=== PATIENT | male | born 1955 | race Caucasian/White ===

== ENCOUNTER → 2016-09-04 | Day surgery (SDC) | payer OTHER ==
[2016-08-30 07:45] VITALS: Ht 185.4 cm; Wt 90.9 kg
[~2016-09-04] VITALS: Ht 185.4 cm; Wt 90.9 kg
[~2016-09-04] MED LIST: 500ML BSSPLUS 0.5ML EPI1:1000 IRRIG ONE; ACETAMINOPHEN 325 MG TAB PO PRN; ATROPINE SULFATE 0.1 MG/ML 5ML SYR IV PRN; ATROPINE SULFATE 1% OP OINT PER APPLICATION CHARGE ONE; AcetylCHOLine CHL OP SOL 1:100 2 ML BTL ONE; B-CO1CAP3 PO; BSS FLUSH ONE; BUPIVACAINE HCL 0.75% 10 ML AMP/VIAL ONE; CEFAZOLIN SOD 1 GM VIAL ONE; CITA40TA4 PO; DEXAMETHASONE SOD INJ 4 MG/ML VIAL ONE; EpHEDrine SULFATE INJ 50 MG/ML AMP IV PRN; EpINEphrine INJ 1MG/ML AMP 1 MG/ML AMP ONE; FENTANYL CITRATE INJ 50 MCG/1 ML 2 ML VIAL ONE; HYALURONIDASE HUMAN 150 UNIT/ML INJ ONE; LACTATED RINGER'S 1000ML 500 ML IV SCH; LIDOCAINE HCL 2% 2 ML VIAL (20MG/ML) ONE; LIDOCAINE MPF 4% INJ INJ ONE; MIDAZOLAM HCL 1 MG/ML 2ML VIAL ONE; NEOMYCIN/POLYMYX/DEXAMETH OP OINT PER APP CHARGE ONE; OCUCOAT 1 ML SOLN IO ONE; ONDANSETRON INJ 2 MG/ML 2 ML VIAL ONE; PROPARACAINE 0.5% OP SOLN PER DROP CHARGE OPL SCH; PROPOFOL IV EMULSION 10 MG/ML 20 ML VIAL IV ONE; TIMOLOL MALEATE 0.5% OP SOLN PER DROP CHARGE ONE; TRIAMCINOLONE ACETONIDE OPHTH 40 MG/ML VIAL STERILE IO ONE
[2016-09-04] MEDS: PHENYLEPHRINE HCL 2.5% OP SOLN PER DROP CHARGE OPL SCH ×2 (07:11→07:16)
[2016-09-04] MEDS: TROPICAMIDE 1% OP SOLN PER DROP CHARGE OPL SCH ×2 (07:12→07:17)
--- NOTE | 2016-09-04 08:14 | History & Physical Bridge - [place] ---
H&P Re-Evaluation Bridge Note: Pt has dislocated lens in left eye and is here for removal of dislocated lens and placement of new anterior chamber lens left eye. I have examined the patient , reviewed the History & Physical and in the interval since the performance of the History & Physical I have noted the following changes of clinical significance: No changes noted
--- NOTE | 2016-09-04 10:38 | Discharge Instructions-SurgCtr ---
Discharge Instructions Date of Service Sep 04, 2016. Visit Reason for Visit: Left Eye Subluxed Lens Discharge Discharge Diagnosis / Problem: same Discharge Goals Goal(s): Improve function Activity Recommendations Activity Limitations: per Instructions/Follow-up section Anesthesia . Post Anesthesia Instructions: If you have had General Anesthesia or IV Sedation: * Do not drive today. * Resume driving when surgeon permits. * Do not make important decisions or sign legal documents today. * Call surgeon for: 1. Temperature elevations greater than 101 degrees F. 2. Uncontrollable pain. 3. Excessive bleeding. 4. Persistent nausea and vomiting. 5. Medication intolerance (nausea, vomiting or rash). * For nausea and vomiting use only clear liquids such as: tea, soda, bouillon until nausea subsides, then gradually increase diet as tolerated. * If you have any concerns or questions, call your surgeon's office. If physician is unavailable and it is an emergency, call 911 or go to the nearest emergency room. . Instructions / Follow-Up Instructions / Follow-Up * May take Tylenol if needed for discomfort. * Do NOT remove eye shield. * NO straining, heavy lifting (>15 pounds) or bending below waist. * Avoid getting water or soap directly into operative eye. * Do NOT rub eye. If you experience increasing eye pain not relieved by medication, please contact us immediately at [phone]. If you are unable to reach someone at the above number, call [phone] and ask to speak with the EYE DOCTOR RESEARCH LIBRARIAN. Inform them that you are a Dr. Figueredo patient who had recent surgery. Diet Recommendations Home Diet: resume previous diet Procedures Procedures Performed: Left Eye Vitrectomy 23 Gauge, Lens Removal and Implant Placement Left Eye Pending Studies Studies pending at discharge: no Medical Emergencies . Who to Call and When: Medical Emergencies: If at any time you feel your situation is an emergency, please call 911 immediately. . Non-Emergent Contact Non-Emergency issues call your: [employer] Machine Operator . . "Provider Documentation" section prepared by Carson Figueredo.
--- NOTE | 2016-09-04 10:45 | [facility] Operative Report ---
Operative Report Date of Service Sep 04, 2016. Operative Report PREOPERATIVE DIAGNOSIS: Posterior dislocated intraocular lens implant, left eye. ICD10 CODE: T85.22XD POSTOPERATIVE DIAGNOSIS: same. PROCEDURE: 1. Pars plana vitrectomy, 23 gauge. 2. Removal of dislocated lens implant. 3. Placement of anterior chamber lens. 4. Posterior subTenon's injection of Triescence 20mg. All to the left eye. CPT CODE: [id number] SURGEON: Carson Figueredo D.O. COMPLICATIONS: None. ESTIMATED BLOOD LOSS: None. SPECIMENS: None. ANESTHESIA: Retrobulbar block and MAC INDICATIONS FOR PROCEDURE: Surgery is indicated to decrease risk of vision loss and potentially improve vision. CONSENT: The risks, benefits and alternatives were discussed with the patient including but not limited to decreased visual acuity, failure to achieve desired results, loss of the eye, infection, pain, glaucoma, lens changes, retinal tears, retinal detachment, the need for more procedures, drooping of the eyelid, blindness, and double vision. The patient is aware of risks and consents to the surgery. Consent is signed and on the chart. OPERATION AND FINDINGS: The patient was brought to the operating room where the patient was identified by name, date, and medical record number. The surgical site was confirmed with the informed written consent. The patient was sedated by the anesthesiology team after which a 50:50 mixture of 4% lidocaine and 0.75% bupivacaine with hyaluronidase was administered in a standard retrobulbar fashion. A total of 4 ml was administered without difficulty. The patient was then prepped and draped in the usual sterile manner for retinal surgery. A wire lid speculum was placed and an Tyler 23-gauge trocar cannula system was employed. The inferior temporal trocar cannula was first placed in an angled fashion 3.75mm posterior to the surgical limbus and the infusion cannula was inserted into this cannula after which the intravitreal position was verified prior to turning the infusion on. Two more trocar cannulas were then inserted in an angled fashion, one in the superior temporal, and one in the superior nasal quadrant both 3.75mm posterior to the surgical limbus. A light pipe and vitrector were then introduced into the eye and the BIOM wide angle viewing system was brought into place. Posterior inspection revealed a posterior dislocated lens implant. There was also peripheral laser from previously repaired retinal detachment. Standard core vitrectomy was performed and the capsular remnants were removed from the implant with the vitrector and the implant was brought into the anterior chamber. Next, a limited limbal based conjunctival peritomy was fashioned and the white to white distance was measured and found to be 12.5mm. A limbal based corneal incision measuring 7mm was made with a keratome, [place] was instilled and the previously subluxed old lens implant was removed through this incision with foreign body forceps. Next, the new S122UV +13.5D lens was implanted and rotated into place without difficulty. The incision was closed with interrupted 10-0 nylon suture and the knots were buried. The wound was found to be without leaks. Next, a peripheral iridotomy was fashioned at the 1 o'clock meridian with the vitrector. The instruments were then removed and the sclerotomies were closed with 8-0 Vicryl suture and found to be water tight. The limited conjunctival peritomy was also closed with 7-0 Vicryl suture. The intraocular pressure was found to be within normal limits by palpation and subconjunctival injections of vancomycin and dexamethasone were administered inferiorly and superiorly. A subTenon's injection of Triescence 20mg was injected inferiorly. The wire lid speculum was removed. Maxitrol was applied to the surface of the eye. A light patch and shield were taped over the surface of the eye and the patient left the Operating Room in stable condition having tolerated the procedure well. I attest to the content of the Intraoperative Record and any orders documented therein. Any exceptions are noted below.
--- NOTE | 2016-09-04 11:07 | Anesthesia Progress Nt - [facility] ---
Anesthesia Post Op Note Date & Time Sep 04, 2016 at 11:06 Vital Signs Pain Intensity: 0 Vital Signs Past 12 Hours Date Time Temp Pulse Resp B/P Pulse Ox O2 Delivery O2 Flow Rate FiO2 09/04/16 10:41 36.7 71 16 139/81 95 Room Air 09/04/16 07:15 36.4 72 18 139/88 97 Room Air Notes Mental Status: alert / awake / arousable, participated in evaluation Pt Amnestic to Procedure: Yes Nausea / Vomiting: adequately controlled Pain: adequately controlled Airway Patency, RR, SpO2: stable & adequate BP & HR: stable & adequate Hydration State: stable & adequate Anesthetic Complications: no major complications apparent
[2016-09-04 11:11] VITALS: BP 137/82; PULSE 68; TEMP 36.7; O2SAT 96
== END | disposition home or self-care (01) ==
LOC: X.SURG 06:29
PROVIDERS: ATTEND Ophthalmology
DX: T85.22XA Displacement of intraocular lens, initial encounter (principal); Y83.1 Surgical operation with implant of artificial internal device as the cause of abnormal reaction of the patient, or of later complication, without mention of misadventure at the time of the procedure; F17.200 Nicotine dependence, unspecified, uncomplicated; Z98.49 Cataract extraction status, unspecified eye

== ENCOUNTER → 2016-11-01 | Outpatient (CLI) | payer OTHER ==
[~2016-11-01] MED LIST changes: -500ML BSSPLUS 0.5ML EPI1:1000 IRRIG ONE; -ACETAMINOPHEN 325 MG TAB PO PRN; -ATROPINE SULFATE 0.1 MG/ML 5ML SYR IV PRN; -ATROPINE SULFATE 1% OP OINT PER APPLICATION CHARGE ONE; -AcetylCHOLine CHL OP SOL 1:100 2 ML BTL ONE; -BSS FLUSH ONE; -BUPIVACAINE HCL 0.75% 10 ML AMP/VIAL ONE; -CEFAZOLIN SOD 1 GM VIAL ONE; -DEXAMETHASONE SOD INJ 4 MG/ML VIAL ONE; -EpHEDrine SULFATE INJ 50 MG/ML AMP IV PRN; -EpINEphrine INJ 1MG/ML AMP 1 MG/ML AMP ONE; -FENTANYL CITRATE INJ 50 MCG/1 ML 2 ML VIAL ONE; -HYALURONIDASE HUMAN 150 UNIT/ML INJ ONE; -LACTATED RINGER'S 1000ML 500 ML IV SCH; -LIDOCAINE HCL 2% 2 ML VIAL (20MG/ML) ONE; -LIDOCAINE MPF 4% INJ INJ ONE; -MIDAZOLAM HCL 1 MG/ML 2ML VIAL ONE; -NEOMYCIN/POLYMYX/DEXAMETH OP OINT PER APP CHARGE ONE; -OCUCOAT 1 ML SOLN IO ONE; -ONDANSETRON INJ 2 MG/ML 2 ML VIAL ONE; -PROPARACAINE 0.5% OP SOLN PER DROP CHARGE OPL SCH; -PROPOFOL IV EMULSION 10 MG/ML 20 ML VIAL IV ONE; -TIMOLOL MALEATE 0.5% OP SOLN PER DROP CHARGE ONE; -TRIAMCINOLONE ACETONIDE OPHTH 40 MG/ML VIAL STERILE IO ONE
--- NOTE | 2016-11-01 14:06 | DIAGNOSTIC IMAGING REPORT ---
TESTICULAR ULTRASOUND HISTORY: Pain N43.3 Hydrocele COMPARISON: None. FINDINGS: Right testis: Maximum dimension 4.4 cm. Normal vascular flow. Small right hydrocele. Left testis: Maximum dimension 4.8 cm. Normal vascular flow. Small hydrocele. IMPRESSION: 1. Normal testicular ultrasound. 2. Small bilateral hydroceles. Electronically signed by: Kanu Chu M.D. 11/01/2016 2:04 PM Dictated Date/Time: 11/01/2016 2:03 PM
--- NOTE | 2016-11-01 14:07 | DIAGNOSTIC IMAGING REPORT ---
ULTRASOUND ART DOP LOWER EXT BILAT CLINICAL HISTORY: HYDROCELE, CLOTIFICATION LE COMPARISON STUDY: None FINDINGS: Real-time as well as Doppler evaluation of the arterial structures of the lower legs was performed. Waveforms are triphasic throughout. Velocity characteristics are unremarkable. The following blood pressure indices were obtained. On the right, posterior tibial is 1.23 and dorsalis pedis is 0.94. On the left, posterior tibial is 1.32 and dorsalis pedis is 0.95. IMPRESSION: Normal study. No significant stenosis Electronically signed by: Kanu Chu M.D. 11/01/2016 2:06 PM Dictated Date/Time: 11/01/2016 2:05 PM
== END | disposition home or self-care (01) ==
LOC: C.ULTR 12:12
PROVIDERS: ATTEND Family Medicine
DX: I73.9 Peripheral vascular disease, unspecified (principal); N43.3 Hydrocele, unspecified

== ENCOUNTER 2025-04-05 12:09 | Inpatient (IN) ==
--- NOTE | 2025-04-05 12:42 | Emergency Department Note ---
History of Present Illness General Chief complaint: Shortness of Breath/Dyspnea Stated complaint: SOB Time Seen by Provider: 04/05/25 12:10 Source: patient and family Mode of arrival: EMS History of Present Illness Patient is a 70-year-old male with history of MS who presents for cough and difficulty breathing. According to his son who is at bedside he has had worsening cough over the past 24 hours and had trouble breathing this morning. Oxygen saturations were greater than 92% on room air per EMS. Patient placed on 6 L by them for comfort. He has had several weeks of generalized weakness and his at home is apparently sick with upper respiratory symptoms as well. He is not on any immunosuppressive medication for his MS. Denies any fevers, chills, chest pain, abdominal pain, rash. Not currently on any antibiotics. He does report some chest wall pain associated with his cough. Cough is productive of yellow/rust colored sputum. Home Medications Medication Instructions Recorded Confirmed Type Tylenol PM Extra Strength 500 mg PO DAILY PRN Pain 04/05/25 04/05/25 History Unkn 2 tab PO BID 04/05/25 04/05/25 History Allergies Allergy/AdvReac Type Severity Reaction Status Date / Time No Known Allergies Allergy Unverified 04/05/25 16:43 Past Med/Surg History Problem List (Updated 04/06/25 @ 14:04 by Kal Swan MD) Pneumonia (Acute) Acute respiratory alkalosis Neutrophilic leukocytosis Urinary retention Esophageal thickening (Acute) Bronchiolitis Physical debility (Chronic) Hydrocele of testis (Chronic) Muscular dystrophy (Chronic) Surgical History (Updated 09/26/22 @ 08:24 by Piper Herring LPN) History of cataract surgery Family History (Updated 09/26/22 @ 08:25 by Piper Herring LPN) Mother Myocardial infarction Denies family history of Ovarian cancer Prostate cancer Breast cancer Colorectal cancer Social History (Updated 09/26/22 @ 08:27 by Piper Herring LPN) Smoking Status: Never smoker Tobacco Type: Cigarettes Second Hand Exposure: No; Do You Dip or Chew Tobacco: No; Hx Alcohol Use: No Hx Substance Use: No Preferred Language: Yoruba Communication Ability: Effective Ham Stringer Required: No Beliefs That Will Affect Care: Cultural Cultural Beliefs: from [facility] marital status: Current Living Situation: Family current occupational status: disabled How many Children do You have: 6 Other Information That Helps Us Care for You: No Feels Safe at Home: Yes Safety Concerns: Feels Safe At This Time Childhood Exposure to Second-Hand Smoke: Yes Diet: regular caffeine: Yes Dental Care, Regularly: No Physical Activity Frequency Comment: as much as he can be in a wheelchair Seatbelt Use: sometimes Sunscreen Use: No Assistive Devices: Glasses and Oxygen - Continuous Review of Systems Review of systems negative outside of positive findings mentioned in HPI. Physical Exam Vital Signs Vital Signs - 24 hr 04/05/25 14:00 04/05/25 16:00 04/05/25 16:57 Temperature Temperature Source Pulse Rate 85 Pulse Rate [Apical] 84 83 Pulse Rate [Finger] Pulse Rhythm [Apical] Regular Pulse Strength [Apical] Normal Respiratory Rate 18 21 Respiratory Effort / Characteristics Non-Labored Spontaneous Respiratory Depth Normal Respiratory Pattern Regular Blood Pressure Blood Pressure [Right Arm] 157/125 H 159/89 H Blood Pressure Mean [Right Arm] 135 112 Blood Pressure Position [Right Arm] Pulse Oximetry 97 97 Oxygen Delivery Method Room Air Oxygen Flow Rate Oxygen Flow Rate - Titration Pulse Oximetry Post Tiitration EWS Level of Consciousness - Last Result EWS Temperature - Last Result EWS Respiratory Rate - Last Result EWS Oxygen Saturation - Last Result EWS Oxygen in Use - Last Result EWS Lactate - Last Result EWS Score EWS Clinical Risk 04/05/25 17:00 04/05/25 19:00 04/05/25 19:53 Temperature Temperature Source Pulse Rate Pulse Rate [Apical] 85 89 Pulse Rate [Finger] Pulse Rhythm [Apical] Regular Regular Pulse Strength [Apical] Normal Normal Respiratory Rate 23 20 Respiratory Effort / Characteristics Non-Labored Spontaneous Non-Labored Spontaneous Respiratory Depth Normal Normal Respiratory Pattern Regular Regular Blood Pressure Blood Pressure [Right Arm] 157/91 H 150/93 H Blood Pressure Mean [Right Arm] 113 112 Blood Pressure Position [Right Arm] Lying Pulse Oximetry 95 95 88 L Oxygen Delivery Method Room Air Room Air Room Air Nasal Cannula Oxygen Flow Rate 0 Oxygen Flow Rate - Titration 2 Pulse Oximetry Post Tiitration 93 EWS Level of Consciousness - Last Result EWS Temperature - Last Result EWS Respiratory Rate - Last Result EWS Oxygen Saturation - Last Result EWS Oxygen in Use - Last Result EWS Lactate - Last Result EWS Score EWS Clinical Risk 04/05/25 19:54 04/05/25 20:30 04/05/25 20:30 Temperature 37.0 C Temperature Source Oral Pulse Rate 90 Pulse Rate [Apical] Pulse Rate [Finger] 88 Pulse Rhythm [Apical] Pulse Strength [Apical] Respiratory Rate 20 18 Respiratory Effort / Characteristics Non-Labored Spontaneous Non-Labored Spontaneous Respiratory Depth Normal Normal Respiratory Pattern Regular Regular Blood Pressure 160/90 H Blood Pressure [Right Arm] 149/81 H Blood Pressure Mean [Right Arm] 103 Blood Pressure Position [Right Arm] Pulse Oximetry 93 97 Oxygen Delivery Method Nasal Cannula Nasal Cannula Nasal Cannula Oxygen Flow Rate 2 3 3 Oxygen Flow Rate - Titration Pulse Oximetry Post Tiitration EWS Level of Consciousness - Last Result EWS Temperature - Last Result EWS Respiratory Rate - Last Result EWS Oxygen Saturation - Last Result EWS Oxygen in Use - Last Result EWS Lactate - Last Result EWS Score EWS Clinical Risk 04/05/25 21:21 04/06/25 04:18 04/06/25 07:04 Temperature Temperature Source Pulse Rate Pulse Rate [Apical] 82 Pulse Rate [Finger] 85 Pulse Rhythm [Apical] Pulse Strength [Apical] Respiratory Rate 16 16 Respiratory Effort / Characteristics Non-Labored Spontaneous Non-Labored Spontaneous Respiratory Depth Respiratory Pattern Blood Pressure Blood Pressure [Right Arm] Blood Pressure Mean [Right Arm] Blood Pressure Position [Right Arm] Pulse Oximetry 97 96 Oxygen Delivery Method Nasal Cannula Nasal Cannula Oxygen Flow Rate 3 3 Oxygen Flow Rate - Titration Pulse Oximetry Post Tiitration EWS Level of Consciousness - Last Result Spontaneously Alert EWS Temperature - Last Result 37.0 EWS Respiratory Rate - Last Result 16 EWS Oxygen Saturation - Last Result 97 EWS Oxygen in Use - Last Result Yes EWS Lactate - Last Result 1.3 EWS Score 0 EWS Clinical Risk Low Risk 04/06/25 08:00 Temperature 36.9 C Temperature Source Oral Pulse Rate Pulse Rate [Apical] Pulse Rate [Finger] 86 Pulse Rhythm [Apical] Pulse Strength [Apical] Respiratory Rate 17 Respiratory Effort / Characteristics Respiratory Depth Respiratory Pattern Blood Pressure Blood Pressure [Right Arm] 129/79 Blood Pressure Mean [Right Arm] 95 Blood Pressure Position [Right Arm] Pulse Oximetry 96 Oxygen Delivery Method Nasal Cannula Oxygen Flow Rate 3 Oxygen Flow Rate - Titration Pulse Oximetry Post Tiitration EWS Level of Consciousness - Last Result EWS Temperature - Last Result EWS Respiratory Rate - Last Result EWS Oxygen Saturation - Last Result EWS Oxygen in Use - Last Result EWS Lactate - Last Result EWS Score EWS Clinical Risk See below. 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 ENMT external ear and nose normal, oropharynx normal Neck trachea midline, no thyromegaly Respiratory + labored breathing and + cough Auscultation: + rhonchi (diffuse ) Cardiovascular RRR, no murmur, no edema Gastrointestinal (Abdomen) normal bowel sounds, soft, nontender, no hepatosplenomegaly Course Administered Medications Albuterol (Albut/Ipratrop 3mg/0.5mg Neb 3 Ml Vial) 3 ml NEB Q6R PRN; Protocol PRN Reason: Shortness Of Breath Stop: 05/05/25 20:50 Last Admin: 04/05/25 21:20 Dose: 3 ml Documented By: ANTHONY Enoxaparin Sodium (Enoxaparin Inj 40 Mg/0.4 Ml Syr) 40 mg SQ DAILY TITO Stop: 05/06/25 08:59 Last Admin: 04/06/25 10:16 Dose: 40 mg Documented By: christiano Sodium Chloride (Sodium Chlor 7% 4 Ml Neb) 4 ml NEB BIDR TITO Stop: 05/05/25 21:14 Last Admin: 04/06/25 07:04 Dose: 4 ml Documented By: Admin: 04/05/25 21:20 Dose: 4 ml Documented By: ANTHONY Discontinued Medications Acetaminophen (Acetaminophen 500 Mg Tab) 1,000 mg PO NOW STA Stop: 04/05/25 12:34 Last Admin: 04/05/25 13:22 Dose: 1,000 mg Documented By: JOSE L Sodium Chloride (Nss) 1,000 mls @ 999 mls/hr IV .Q1H1M TITO Stop: 04/05/25 13:45 Last Infusion: 04/05/25 15:27 Dose: Infused Documented By: Admin: 04/05/25 13:22 Dose: 999 mls/hr Documented By: JOSE L Cefepime HCl (Maxipime 2000mg) 2,000 mg in 20 mls @ 5 mls/min IV NOW STA; Protocol Stop: 04/05/25 12:36 Last Admin: 04/05/25 13:22 Dose: 5 mls/min Documented By: JOSE L Ceftriaxone Sodium (Rocephin) 2,000 mg in 50 mls @ 100 mls/hr IV NOW STA Stop: 04/05/25 18:07 Last Infusion: 04/05/25 18:36 Dose: Infused Documented By: Admin: 04/05/25 18:05 Dose: 100 mls/hr Documented By: EVELYN Ioversol (Optiray 320 125ml) 115 ml IV ONCE ONE Stop: 04/05/25 16:05 Last Admin: 04/05/25 16:04 Dose: 115 ml Documented By: MUSTAPHA Menthol (Cough Drop (Sugar Free) Toshia 24 Toshia/1 Box) Confirm Administered Dose 24 toshia BUCCAL .STK-MED ONE Stop: 04/06/25 10:21 Last Admin: 04/06/25 10:23 Dose: 24 toshia Documented By: SCOTT Sodium Chloride (Sodium Chlor 7% 4 Ml Neb) 4 ml NEB Q3R TITO Stop: 05/05/25 20:50 Last Admin: 04/05/25 22:21 Dose: Not Given Documented By: ANTHONY Medical Decision Making Differential Diagnosis DDx includes but not limited to: PNA, bronchitis, CHF, ACS, metabolic abnormality, PE Medical Records Attestation: I reviewed the patient's medical records. Home Medications Current Medication List: was personally reviewed by me Laboratory Data Attestation: I reviewed the patient's lab results. 04/06/25 09:06 04/06/25 09:06 Lab Results 04/05/25 04/05/25 04/05/25 Range/Units 12:35 12:36 12:36 WBC Cancelled RBC Cancelled Hgb Cancelled POC Hgb (14.0-18.0) g/dl Hct Cancelled POC Hct (42-52) % MCV Cancelled MCH Cancelled MCHC Cancelled RDW Std Deviation Cancelled RDW Coeff of Lori Cancelled Plt Count Cancelled MPV Cancelled Immature Gran % (Auto) Cancelled Neut % (Auto) Cancelled Lymph % (Auto) Cancelled [place] % (Auto) Cancelled Eos % (Auto) Cancelled Baso % (Auto) Cancelled Neut # (Auto) Cancelled Lymph # (Auto) Cancelled [place] # (Auto) Cancelled Eos # (Auto) Cancelled Baso # (Auto) Cancelled Immature Gran # (Auto) Cancelled Absolute Nucleated RBC Cancelled Nucleated RBC % (auto) Cancelled Neutrophils % (Manual) Cancelled Band Neutrophils % Cancelled Lymphocytes % (Manual) Cancelled Prolymphocyte % Cancelled Reactive Lymphs % (Man) Cancelled Monocytes % (Manual) Cancelled Eosinophils % (Manual) Cancelled Basophils % (Manual) Cancelled Metamyelocytes % (Man) Cancelled Myelocytes % (Man) Cancelled Promyelocytes % (Man) Cancelled Blast Cells % (Manual) Cancelled Plasma Cell % (Manual) Cancelled Other Cells % Cancelled Nucleated RBC % Cancelled Neutrophils # (Manual) Cancelled Band Neutrophils # Cancelled Total Absolute Neuts Cancelled Lymphocytes # (Manual) Cancelled Prolymphocyte # Cancelled Reactive Lymphs # Cancelled Total Abs Lymphocytes Cancelled Monocytes # (Manual) Cancelled Eosinophils # (Manual) Cancelled Basophils # (Manual) Cancelled Metamyelocytes # (Man) Cancelled Myelocytes # (Manual) Cancelled Promyelocytes # (Man) Cancelled Blast Cells # (Man) Cancelled Plasma Cell # (Manual) Cancelled Other Cells # Cancelled Nucleated RBCs # (Man) Cancelled Hypersegmented Neuts Cancelled Hyposegmented Neuts Cancelled Hypogranular Neuts Cancelled Large Granular Lymphs Cancelled # Lrg Granular Lymphs Cancelled Hairy Cells Cancelled Smudge Cells Cancelled Toxic Granulation Cancelled Toxic Vacuolation Cancelled Dohle Bodies Cancelled [place] Rods Cancelled Platelet Estimate Cancelled Hypogranular Platelets Cancelled Giant Platelets Cancelled Platelet Satelliting Cancelled RBC Morphology Cancelled Polychromasia Cancelled Hypochromasia Cancelled Poikilocytosis Cancelled Basophilic Stippling Cancelled Anisocytosis Cancelled Microcytosis Cancelled Macrocytosis Cancelled Spherocytes Cancelled Pappenheimer Bodies Cancelled Sickle Cells Cancelled Target Cells Cancelled Tear Drop Cells Cancelled Ovalocytes Cancelled Stomatocytes Cancelled [place] Bodies Cancelled Echinocytes Cancelled Acanthocytes (Spur) Cancelled Rouleaux Cancelled RBC Agglutinates Cancelled Schistocytes Cancelled Sezary Cell Cancelled VBG pH (7.36-7.41) VBG pCO2 (38-50) mmHg VBG pO2 mmHg VBG HCO3 mmol/L VBG O2 Saturation % VBG Base Excess mEq/L POC Sodium (135-144) mmol/L Sodium Cancelled POC Potassium (3.3-5.0) mmol/L Potassium Cancelled POC Chloride (101-112) mmol/L Chloride Cancelled Carbon Dioxide Cancelled POC Total CO2 (24-31) mmol/L Anion Gap Cancelled POC Anion Gap (16-25) mmol/L POC BUN (7-18) mg/dl BUN Cancelled Creatinine Cancelled POC Creatinine (0.6-1.3) mg/dl Est Cr Clr Drug Dosing Cancelled eGFR Cancelled BUN/Creatinine Ratio Cancelled Glucose Cancelled POC Glucose (other) (70-99) mg/dl Lactate (0.4-2.0) mmol/L Calcium Cancelled POC Ioniz Calcium Iris (1.12-1.32) mmol/l Phosphorus (2.5-4.9) mg/dl Magnesium Cancelled Total Bilirubin Cancelled Direct Bilirubin Cancelled AST Cancelled ALT Cancelled Alkaline Phosphatase Cancelled Troponin I High Sens Cancelled Total Protein Cancelled Albumin Cancelled Globulin (2.5-4.0) gm/dl Albumin/Globulin Ratio (0.9-2) Procalcitonin 0.03 (0-0.5) ng/ml Adenovirus (PCR) Not Detected (NotDetected) B. pertussis DNA (PCR) Not Detected (NotDetected) B.parapertussis DNA PCR Not Detected (NotDetected) C. pneumoniae DNA (PCR) Not Detected (NotDetected) Coronavirus OC43 (PCR) Not Detected (NotDetected) Coronavirus HKU1 (PCR) Not Detected (NotDetected) Coronavirus 229E (PCR) Not Detected (NotDetected) SARS-CoV-2 (PCR) NEGATIVE Not Detected (Negative) Coronavirus NL63 (PCR) Not Detected (NotDetected) Human Metapneumovir PCR Not Detected (NotDetected) Influenza Type A (PCR) Negative (Neg) Influenza Type B (PCR) (Neg) M. pneumoniae (PCR) (NotDetected) Parainfluenza 1 (PCR) (NotDetected) Parainfluenza 2 (PCR) (NotDetected) Parainfluenza 3 (PCR) (NotDetected) Parainfluenza 4 (PCR) (NotDetected) RSV (RT-PCR) (Neg) RSV (PCR) (NotDetected) Entero/Rhino (PCR) (NotDetected) Blood Parasites ID Cancelled 04/05/25 04/05/25 04/05/25 Range/Units 12:36 12:36 13:15 WBC RBC Hgb POC Hgb (14.0-18.0) g/dl Hct POC Hct (42-52) % MCV MCH MCHC RDW Std Deviation RDW Coeff of Lori Plt Count MPV Immature Gran % (Auto) Neut % (Auto) Lymph % (Auto) [place] % (Auto) Eos % (Auto) Baso % (Auto) Neut # (Auto) Lymph # (Auto) [place] # (Auto) Eos # (Auto) Baso # (Auto) Immature Gran # (Auto) Absolute Nucleated RBC Nucleated RBC % (auto) Neutrophils % (Manual) Band Neutrophils % Lymphocytes % (Manual) Prolymphocyte % Reactive Lymphs % (Man) Monocytes % (Manual) Eosinophils % (Manual) Basophils % (Manual) Metamyelocytes % (Man) Myelocytes % (Man) Promyelocytes % (Man) Blast Cells % (Manual) Plasma Cell % (Manual) Other Cells % Nucleated RBC % Neutrophils # (Manual) Band Neutrophils # Total Absolute Neuts Lymphocytes # (Manual) Prolymphocyte # Reactive Lymphs # Total Abs Lymphocytes Monocytes # (Manual) Eosinophils # (Manual) Basophils # (Manual) Metamyelocytes # (Man) Myelocytes # (Manual) Promyelocytes # (Man) Blast Cells # (Man) Plasma Cell # (Manual) Other Cells # Nucleated RBCs # (Man) Hypersegmented Neuts Hyposegmented Neuts Hypogranular Neuts Large Granular Lymphs # Lrg Granular Lymphs Hairy Cells Smudge Cells Toxic Granulation Toxic Vacuolation Dohle Bodies [place] Platelet Estimate Hypogranular Platelets Giant Platelets Platelet Satelliting RBC Morphology Polychromasia Hypochromasia Poikilocytosis Basophilic Stippling Anisocytosis Microcytosis Macrocytosis Spherocytes Pappenheimer Bodies Sickle Cells Target Cells Tear Drop Cells Ovalocytes Stomatocytes [place] Bodies Echinocytes Acanthocytes (Spur) Rouleaux RBC Agglutinates Schistocytes Sezary Cell VBG pH 7.46 H (7.36-7.41) VBG pCO2 35 L (38-50) mmHg VBG pO2 58 mmHg VBG HCO3 25 mmol/L VBG O2 Saturation 92.1 % VBG Base Excess 1.4 mEq/L POC Sodium (135-144) mmol/L Sodium POC Potassium (3.3-5.0) mmol/L Potassium POC Chloride (101-112) mmol/L Chloride Carbon Dioxide POC Total CO2 (24-31) mmol/L Anion Gap POC Anion Gap (16-25) mmol/L POC BUN (7-18) mg/dl BUN Creatinine POC Creatinine (0.6-1.3) mg/dl Est Cr Clr Drug Dosing eGFR BUN/Creatinine Ratio Glucose POC Glucose (other) (70-99) mg/dl Lactate 1.3 (0.4-2.0) mmol/L Calcium POC Ioniz Calcium Iris (1.12-1.32) mmol/l Phosphorus (2.5-4.9) mg/dl Magnesium Total Bilirubin Direct Bilirubin AST ALT Alkaline Phosphatase Troponin I High Sens Total Protein Albumin Globulin (2.5-4.0) gm/dl Albumin/Globulin Ratio (0.9-2) Procalcitonin (0-0.5) ng/ml Adenovirus (PCR) (NotDetected) B. pertussis DNA (PCR) (NotDetected) B.parapertussis DNA PCR (NotDetected) C. pneumoniae DNA (PCR) (NotDetected) Coronavirus OC43 (PCR) (NotDetected) Coronavirus HKU1 (PCR) (NotDetected) Coronavirus 229E (PCR) (NotDetected) SARS-CoV-2 (PCR) (Negative) Coronavirus NL63 (PCR) (NotDetected) Human Metapneumovir PCR (NotDetected) Influenza Type A (PCR) Not Detected (Neg) Influenza Type B (PCR) Negative Not Detected (Neg) M. pneumoniae (PCR) Not Detected (NotDetected) Parainfluenza 1 (PCR) Not Detected (NotDetected) Parainfluenza 2 (PCR) Not Detected (NotDetected) Parainfluenza 3 (PCR) Not Detected (NotDetected) Parainfluenza 4 (PCR) Not Detected (NotDetected) RSV (RT-PCR) Negative (Neg) RSV (PCR) Not Detected (NotDetected) Entero/Rhino (PCR) Not Detected (NotDetected) Blood Parasites ID 04/05/25 04/05/25 04/05/25 Range/Units 14:24 15:51 16:26 WBC 9.01 RBC 2.95 L Hgb 9.2 L POC Hgb 13.6 L 13.3 L (14.0-18.0) g/dl Hct 27.1 L POC Hct 40 L 39 L (42-52) % MCV 91.9 MCH 31.2 MCHC 33.9 RDW Std Deviation 41.0 RDW Coeff of Lori 12.1 Plt Count 233 MPV 9.0 L Immature Gran % (Auto) 0.3 Neut % (Auto) 82.7 Lymph % (Auto) 8.7 [place] % (Auto) 7.8 Eos % (Auto) 0.1 Baso % (Auto) 0.4 Neut # (Auto) 7.45 H Lymph # (Auto) 0.78 L [place] # (Auto) 0.70 H Eos # (Auto) 0.01 Baso # (Auto) 0.04 Immature Gran # (Auto) 0.03 Absolute Nucleated RBC Nucleated RBC % (auto) Neutrophils % (Manual) Band Neutrophils % Lymphocytes % (Manual) Prolymphocyte % Reactive Lymphs % (Man) Monocytes % (Manual) Eosinophils % (Manual) Basophils % (Manual) Metamyelocytes % (Man) Myelocytes % (Man) Promyelocytes % (Man) Blast Cells % (Manual) Plasma Cell % (Manual) Other Cells % Nucleated RBC % Neutrophils # (Manual) Band Neutrophils # Total Absolute Neuts Lymphocytes # (Manual) Prolymphocyte # Reactive Lymphs # Total Abs Lymphocytes Monocytes # (Manual) Eosinophils # (Manual) Basophils # (Manual) Metamyelocytes # (Man) Myelocytes # (Manual) Promyelocytes # (Man) Blast Cells # (Man) Plasma Cell # (Manual) Other Cells # Nucleated RBCs # (Man) Hypersegmented Neuts Hyposegmented Neuts Hypogranular Neuts Large Granular Lymphs # Lrg Granular Lymphs Hairy Cells Smudge Cells Toxic Granulation Toxic Vacuolation Dohle Bodies [place] Platelet Estimate Hypogranular Platelets [place] Platelets Platelet Satelliting RBC Morphology Polychromasia Hypochromasia Poikilocytosis Basophilic Stippling Anisocytosis Microcytosis Macrocytosis Spherocytes Pappenheimer Bodies Sickle Cells Target Cells Tear Drop Cells Ovalocytes Stomatocytes [place] Bodies Echinocytes Acanthocytes (Spur) Rouleaux RBC Agglutinates Schistocytes Sezary Cell VBG pH (7.36-7.41) VBG pCO2 (38-50) mmHg VBG pO2 mmHg VBG HCO3 mmol/L VBG O2 Saturation % VBG Base Excess mEq/L POC Sodium 134 L 132 L (135-144) mmol/L Sodium POC Potassium 3.9 3.9 (3.3-5.0) mmol/L Potassium POC Chloride 101 96 L (101-112) mmol/L Chloride Carbon Dioxide POC Total CO2 21 L 23 L (24-31) mmol/L Anion Gap POC Anion Gap 17.0 18.0 (16-25) mmol/L POC BUN 20 H 21 H (7-18) mg/dl BUN Creatinine POC Creatinine 0.7 0.9 (0.6-1.3) mg/dl Est Cr Clr Drug Dosing eGFR BUN/Creatinine Ratio Glucose POC Glucose (other) 146 H 137 H (70-99) mg/dl Lactate (0.4-2.0) mmol/L Calcium POC Ioniz Calcium Iris 1.10 L 1.07 L (1.12-1.32) mmol/l Phosphorus (2.5-4.9) mg/dl Magnesium Total Bilirubin Direct Bilirubin AST ALT Alkaline Phosphatase Troponin I High Sens Total Protein Albumin Globulin (2.5-4.0) gm/dl Albumin/Globulin Ratio (0.9-2) Procalcitonin (0-0.5) ng/ml Adenovirus (PCR) (NotDetected) B. pertussis DNA (PCR) (NotDetected) B.parapertussis DNA PCR (NotDetected) C. pneumoniae DNA (PCR) (NotDetected) Coronavirus OC43 (PCR) (NotDetected) Coronavirus HKU1 (PCR) (NotDetected) Coronavirus 229E (PCR) (NotDetected) SARS-CoV-2 (PCR) (Negative) Coronavirus NL63 (PCR) (NotDetected) Human Metapneumovir PCR (NotDetected) Influenza Type A (PCR) (Neg) Influenza Type B (PCR) (Neg) M. pneumoniae (PCR) (NotDetected) Parainfluenza 1 (PCR) (NotDetected) Parainfluenza 2 (PCR) (NotDetected) Parainfluenza 3 (PCR) (NotDetected) Parainfluenza 4 (PCR) (NotDetected) RSV (RT-PCR) (Neg) RSV (PCR) (NotDetected) Entero/Rhino (PCR) (NotDetected) Blood Parasites ID 04/05/25 04/05/25 04/06/25 Range/Units 16:51 17:02 05:33 WBC 13.84 H 12.22 H RBC 4.49 L 4.18 L Hgb 13.8 L D 12.9 L POC Hgb (14.0-18.0) g/dl Hct 40.3 L 37.6 L POC Hct (42-52) % MCV 89.8 90.0 MCH 30.7 30.9 MCHC 34.2 34.3 RDW Std Deviation 39.1 39.4 RDW Coeff of Lori 12.0 11.9 Plt Count 277 319 MPV 10.1 9.7 Immature Gran % (Auto) 0.4 0.3 Neut % (Auto) 80.0 77.2 Lymph % (Auto) 11.1 10.5 [place] % (Auto) 7.7 7.9 Eos % (Auto) 0.4 3.4 Baso % (Auto) 0.4 0.7 Neut # (Auto) 11.10 H 9.45 H Lymph # (Auto) 1.53 1.28 [place] # (Auto) 1.06 H 0.96 H Eos # (Auto) 0.05 0.41 Baso # (Auto) 0.05 0.08 Immature Gran # (Auto) 0.05 0.04 Absolute Nucleated RBC Nucleated RBC % (auto) Neutrophils % (Manual) Band Neutrophils % Lymphocytes % (Manual) Prolymphocyte % Reactive Lymphs % (Man) Monocytes % (Manual) Eosinophils % (Manual) Basophils % (Manual) Metamyelocytes % (Man) Myelocytes % (Man) Promyelocytes % (Man) Blast Cells % (Manual) Plasma Cell % (Manual) Other Cells % Nucleated RBC % Neutrophils # (Manual) Band Neutrophils # Total Absolute Neuts Lymphocytes # (Manual) Prolymphocyte # Reactive Lymphs # Total Abs Lymphocytes Monocytes # (Manual) Eosinophils # (Manual) Basophils # (Manual) Metamyelocytes # (Man) Myelocytes # (Manual) Promyelocytes # (Man) Blast Cells # (Man) Plasma Cell # (Manual) Other Cells # Nucleated RBCs # (Man) Hypersegmented Neuts Hyposegmented Neuts Hypogranular Neuts Large Granular Lymphs # Lrg Granular Lymphs Hairy Cells Smudge Cells Toxic Granulation Toxic Vacuolation Dohle Bodies [place] Platelet Estimate Hypogranular Platelets [place] Platelets Platelet Satelliting RBC Morphology Polychromasia Hypochromasia Poikilocytosis Basophilic Stippling Anisocytosis Microcytosis Macrocytosis Spherocytes Pappenheimer Bodies Sickle Cells Target Cells Tear Drop Cells Ovalocytes Stomatocytes [place] Bodies Echinocytes Acanthocytes (Spur) Rouleaux RBC Agglutinates Schistocytes Sezary Cell VBG pH (7.36-7.41) VBG pCO2 (38-50) mmHg VBG pO2 mmHg VBG HCO3 mmol/L VBG O2 Saturation % VBG Base Excess mEq/L POC Sodium (135-144) mmol/L Sodium 131 L 132 L POC Potassium (3.3-5.0) mmol/L Potassium 4.0 3.8 POC Chloride (101-112) mmol/L Chloride 100 101 Carbon Dioxide 23 23 POC Total CO2 (24-31) mmol/L Anion Gap 8 8 POC Anion Gap (16-25) mmol/L POC BUN (7-18) mg/dl BUN 21 23 Creatinine 0.73 0.69 POC Creatinine (0.6-1.3) mg/dl Est Cr Clr Drug Dosing 106.4 112.6 eGFR 97.88 99.56 BUN/Creatinine Ratio 28.8 H 33.3 H Glucose 142 H 118 H POC Glucose (other) (70-99) mg/dl Lactate (0.4-2.0) mmol/L Calcium 8.6 8.7 POC Ioniz Calcium Iris (1.12-1.32) mmol/l Phosphorus 2.7 (2.5-4.9) mg/dl Magnesium Total Bilirubin 1.0 Direct Bilirubin AST 15 ALT 15 Alkaline Phosphatase 48 Troponin I High Sens 4.8 Total Protein 7.0 Albumin 3.4 3.6 Globulin 3.6 (2.5-4.0) gm/dl Albumin/Globulin Ratio 0.9 (0.9-2) Procalcitonin (0-0.5) ng/ml Adenovirus (PCR) (NotDetected) B. pertussis DNA (PCR) (NotDetected) B.parapertussis DNA PCR (NotDetected) C. pneumoniae DNA (PCR) (NotDetected) Coronavirus OC43 (PCR) (NotDetected) Coronavirus HKU1 (PCR) (NotDetected) Coronavirus 229E (PCR) (NotDetected) SARS-CoV-2 (PCR) (Negative) Coronavirus NL63 (PCR) (NotDetected) Human Metapneumovir PCR (NotDetected) Influenza Type A (PCR) (Neg) Influenza Type B (PCR) (Neg) M. pneumoniae (PCR) (NotDetected) Parainfluenza 1 (PCR) (NotDetected) Parainfluenza 2 (PCR) (NotDetected) Parainfluenza 3 (PCR) (NotDetected) Parainfluenza 4 (PCR) (NotDetected) RSV (RT-PCR) (Neg) RSV (PCR) (NotDetected) Entero/Rhino (PCR) (NotDetected) Blood Parasites ID Imaging Data Radiologist's Impression: Chest X-Ray 04/06/25 07:51 XR chest 2V PA/lateral CLINICAL HISTORY: Reassess findings for CAP COMPARISON STUDY: 04/05/2025, CT scan dated 04/05/2025 FINDINGS: The cardiac and mediastinal contours remain stable. Calcified right mediastinal lymph nodes are again visualized. On the lateral view, there is blunting of the right posterior costophrenic angle. This corresponds to the parenchymal opacities described on the most recent CT scan. There is a corresponding of airspace opacities are visualized in the PA film projected beneath the right medial hemidiaphragm. The left lung is clear. There is no pneumothorax. IMPRESSION: 1. Blunting of the right posterior costophrenic angle, and subtle airspace opacities projected beneath the medial aspect of the right hemidiaphragm. These findings correspond to the parenchymal opacities described on the most recent CT scan. The left lung is clear. ACT 112: Negative or not required by law. Electronically signed by: Michael Conteh M.D. 04/06/2025 9:20 AM ECG Data Attestation: I personally reviewed and interpreted this ECG as follows: Indication: + weakness Rate (beats per minute): 91 Rhythm: + sinus rhythm ECG Intervals/blocks: + Normal QRS, + Normal QT and + Normal ID ECG ST segments: + Normal ST segments Comparison ECG Date: no prior available Change: no significant change MDM Narrative Patient is a 70-year-old male who presents for shortness of breath and cough for several days. Self reported history of MS though this is not documented in our EMR and patient is not on any immunosuppressive agents or current treatments for MS. He is hemodynamically stable on the notably slightly tachypneic on evaluation. Diffuse rhonchi noted. There is issues with contaminated lab samples that produce erroneous results. I reviewed the final results from adequate sample. Leukocytosis noted w/o evidence of end organ damage. Cardiac workup negative. CTA shows evidence of bronchitis vs. bronchiolitis in RLL. Viral panel negative. Concern for bacterial cause. IV abx given. Plan for admission for PNA with increased WOB. Stable for hospitalist service. Impression & Plan Pneumonia, Esophageal thickening Discharge Plan Visit Data Chief Complaint: Shortness of Breath/Dyspnea Stated Complaint: SOB ED Provider: Kal Swan Discharge Problem: Pneumonia, Esophageal thickening Patient Disposition: Admitted As Inpatient Condition: Good Discharge Instructions Interventions: ED Discharge Assessment Last Done: 04/05/25 19:54 Discharge Problem: Pneumonia Qualifiers: Pneumonia type: due to unspecified organism Laterality: right Lung location: l ower lobe of lung Qualified Code(s): J18.9 - Pneumonia, unspecified organism
[2025-04-05] MEDS: ACETAMINOPHEN 500 MG TAB PO STA (13:22)
[2025-04-05] MEDS: SODIUM CHLORIDE 0.9% 1,000 ML IV SCH (13:22)
[2025-04-05] MEDS: CEFEPIME 2000MG 2,000 MG/20 ML SYR IV STA (13:22)
[2025-04-05 13:25] LABS: Base Excess VBG 1.4 mEq/L; HCO3 VBG 25 mmol/L; Oxygen Saturation VBG 92.1 %; PCO2 VBG 35 mmHg (38-50); PO2 VBG 58 mmHg; pH VBG 7.46 (7.36-7.41)
[2025-04-05 13:30] LABS: Influenza A virus by PCR Negative (Neg); Influenza B virus by PCR Negative (Neg); SARS CoV2 RNA(COVID-19) Ceph NEGATIVE (Negative)
--- NOTE | 2025-04-05 14:17 | XRay Report ---
XR chest 1V portable CLINICAL HISTORY: Sepsis. COMPARISON STUDY: No previous studies for comparison. FINDINGS: Skin folds project over the chest. The patient is rotated. Lung volumes are normal. Lungs a re clear. There is no pneumothorax or pleural effusion. Cardiac size is normal. Mediastinal contours are normal. There is no evidence for pulmonary edema. Calcified right paratracheal lymph nodes are in cidentally noted. IMPRESSION: No acute cardiopulmonary findings. Rotated study. ACT 112: Negative or not required by law. Electronically signed by: Flo Erickson M.D. 04/05/2025 2:16 PM
[2025-04-05 14:40] LABS: Hematocrit (blood only) 27.1 % (42.0-52.0); Hemoglobin 9.2 g/dl (14.0-18.0); Immature Granulocytes # (auto) 0.03 K/uL (0.01-0.20); Immature Granulocytes % (auto) 0.3 %; Mean Corpuscular Hemoglobin 31.2 pg (25.0-34.0); Mean Corpuscular Volume 91.9 fL (80.0-100.0); Platelet Count 233 K/uL (130-400); RDW Standard Deviation 41.0 fL (36.4-46.3); Red Blood Count 2.95 M/uL (4.70-6.10); White Blood Count 9.01 K/ul (4.8-10.8)
[2025-04-05] MEDS: OPTIRAY 320 125ml IV ONE (16:04)
--- NOTE | 2025-04-05 17:36 | CT Scan Report ---
CT pulmonary angiogram with IV contrast History: Chest pain COMPARISON: None TECHNIQUE: CT angiography of the chest was performed without IV contrast followed by IV contrast, including 3D post processing CTA image reconstruction. Dose reduction techniques were achieved by using automatic exposure control and/or adjustment of mA and/or kV according to patient size and/or use of iterative reconstruction technique. FINDINGS: Diagnostic quality: Adequate There is no evidence for pulmonary embolism. The heart is not enlarged. There is no pericardial effusion. There are no abnormally enlarged hilar or mediastinal lymph nodes. The central tracheobronchial tree is clear. Throughout the right lower lobe there is bronchial wall thickening and patchy centrilobular nodular opacities. There is no pleural effusion. Diffuse, circumferential prominent wall thickening involving the mid and lower esophagus. Limited visualized upper abdomen. There is a small calcified gallstone. No destructive osseous changes are seen. IMPRESSION: No evidence for pulmonary embolism. Findings of bronchitis and infectious bronchiolitis in the right lower lobe. Prominent circumferential wall thickening of the mid and lower esophagus, which may be seen with esophagitis. Malignancy is difficult to entirely exclude. Direct visualization recommended. Electronically signed by Carson Gautam 04-05-2025 5:36 PM
[2025-04-05 17:46] LABS: Alanine Aminotransferase 15.0 U/L (7-52); Albumin Globulin Ratio 0.9 (0.9-2); Albumin Level 3.4 gm/dl (3.4-5.0); Alkaline Phosphatase 48.0 U/L (34-104); Anion Gap 8.0 (3-11); Bilirubin,Total 1.0 mg/dl (0.2-1.0); Blood Urea Nitrogen 21.0 mg/dl (6-23); Calcium 8.6 mg/dl (8.6-10.3); Carbon Dioxide 23.0 mmol/L (21-32); Chloride 100.0 mmol/L (98-107); Creatinine Clr Calc Pharmacy 106.4 ml/min; Globulin 3.6 gm/dl (2.5-4.0); Glucose 142.0 mg/dl (70-99(Fasting)); Potassium 4.0 mmol/L (3.5-5.1); Sodium 131.0 mmol/L (136-145); Total Protein 7.0 gm/dl (6.0-8.3)
[2025-04-05] MEDS: cefTRIAXone SODIUM 2,000 MG/50 ML BAG IV STA (18:05)
[2025-04-05 18:08] LABS: Hematocrit (blood only) 40.3 % (42.0-52.0); Hemoglobin 13.8 g/dl (14.0-18.0); Immature Granulocytes # (auto) 0.05 K/uL (0.01-0.20); Immature Granulocytes % (auto) 0.4 %; Mean Corpuscular Hemoglobin 30.7 pg (25.0-34.0); Mean Corpuscular Volume 89.8 fL (80.0-100.0); Platelet Count 277 K/uL (130-400); RDW Standard Deviation 39.1 fL (36.4-46.3); Red Blood Count 4.49 M/uL (4.70-6.10); White Blood Count 13.84 K/ul (4.8-10.8)
--- NOTE | 2025-04-05 18:09 | History & Physical Report ---
Date of Service April 05, 2025 Assessment & Plan (1) Bronchiolitis: (2) Acute respiratory alkalosis: (3) Muscular dystrophy: (4) Neutrophilic leukocytosis: (5) Esophageal thickening: (6) Urinary retention: (7) Physical debility: Plan In summary this is a 70-year-old male who presents with viral versus bacterial bronchiolitis in the setting of an unspecified muscular dystrophy increase in the risk for progression to bacterial pneumonia #Infectious bronchiolitis // Neutrophilic leukocytosis // Acute respiratory alkalosis At this time it is difficult to determine if the patient's symptoms are primarily viral or bacterial; there is certainly no evidence for severe acute bacterial infection given the normal procalcitonin measure, lack of supplemental oxygen need, and stable hemodynamics otherwise; given the patient's physical debility and unclear chronic muscular dystrophy like syndrome there risk for progressive pulmonary disease is very high and thus agreed for observation and prophylactic treatment of bacterial community-acquired pneumonia Continue ceftriaxone 1 g IV daily Start nebulized hypertonic saline to assist with expectoration Follow daily CBC and renal function panel #Esophageal thickening CT imaging did reveal incidentally distal esophageal thickening, the patient has had some reflux and mild emesis prior to his presentation; likely consequential of this however may require further testing in the outpatient setting and direct visualization #Acute urinary retention Patient is noted in the emergency department to have urinary retention of approximately 300 mL with bladder scan; we will attempt a one-time straight catheterization and reassess the need for additional intervention through his hospital stay; unclear if this is consequential of undiagnosed BPH, acute illness, or related to the patient's unspecified muscular dystrophy like syndrome History of Present Illness Chief Complaint: Productive cough, short of breath Primary Care Provider: NO PCP Mr. Holliday is a 70-year-old male who has an unspecified muscular dystrophy syndrome and does not follow with any long-term physician and is a member of the local [facility] community who presented [facility] due to progressive shortness of breath and productive cough over the past 48 hours. The patient endorses waking on 04/04 with a mildly productive cough without associated hemoptysis which progressed rapidly with increasing shortness of breath with activity as well as at rest, and increased volume and frequency of sputum production. They deny any fevers, chills, nausea, vomiting, pleuritic chest pain, palpitations, lower extremity edema. Due to the progression of their symptoms, he was brought to the emergency department for further evaluation. Allergies Allergy/AdvReac Type Severity Reaction Status Date / Time No Known Allergies Allergy Unverified 04/05/25 16:43 Home Medications Medication Instructions Recorded Confirmed Type Tylenol PM Extra Strength 500 mg PO DAILY PRN Pain 04/05/25 04/05/25 History Unkn 2 tab PO BID 04/05/25 04/05/25 History Past Med/Surg History Problem List (Updated 04/05/25 @ 18:56 by Claudy Lucas DO) Acute respiratory alkalosis Neutrophilic leukocytosis Urinary retention Esophageal thickening Bronchiolitis Physical debility (Chronic) Hydrocele of testis (Chronic) Muscular dystrophy (Chronic) Surgical History (Updated 09/26/22 @ 08:24 by Piper Herring LPN) History of cataract surgery Family History (Updated 09/26/22 @ 08:25 by Piper Herring LPN) Mother Myocardial infarction Denies family history of Ovarian cancer Prostate cancer Breast cancer Colorectal cancer Social History (Updated 09/26/22 @ 08:27 by Piper Herring LPN) Smoking Status: Former smoker Tobacco Type: Cigarettes Second Hand Exposure: No; Do You Dip or Chew Tobacco: No; Hx Alcohol Use: No Hx Substance Use: No Preferred Language: Ghanaian Communication Ability: Effective marital status: Current Living Situation: Spouse current occupational status: disabled How many Children do You have: 6 Feels Safe at Home: Yes Childhood Exposure to Second-Hand Smoke: Yes Diet: regular caffeine: Yes Dental Care, Regularly: No Physical Activity Frequency Comment: as much as he can be in a wheelchair Seatbelt Use: sometimes Sunscreen Use: No Review of Systems Review of Systems: Review of constitutional, cardiovascular, pulmonary, gastrointestinal, genitourinary systems was unremarkable except for pertinent positive and negative findings discussed above Physical Exam Physical Exam: General: Adult male in no acute distress Vital Signs: Reviewed HEENT: Edentulous in the maxilla, limited remaining teeth in the mandibular edentulous with numerous caries, gingivitis; no posterior oropharyngeal cobblestoning, erythema; no tonsillar asymmetry Pulmonary: Symmetric chest wall excursion without restriction; soft crackles present in the right middle lobe, and bilateral basilar segments in the posterior lobes Cardiovascular: Regular rate and rhythm with 3/6 murmur best heard in the left fifth intercostal space parasternally; no rubs or gallops; S1 and S2 normal; right radial pulse 2+ with brisk capillary refill; no notable lower extremity edema Gastrointestinal: Soft, nontender Neurologic: Cranial nerves II through XII grossly intact; diffuse muscle loss secondary to unspecified muscular dystrophy syndrome, resulting in diffuse weakness but no asymmetry or findings of focal neurologic deficit Results & Data Results & Data Vital Signs (Past 12 Hours) Vital Signs Temp Pulse Pulse Resp BP BP Pulse Ox 04/05/25 17:00 85 23 157/91 H 95 04/05/25 16:57 85 04/05/25 16:00 83 21 159/89 H 97 04/05/25 14:00 84 18 157/125 H 97 04/05/25 12:56 97 04/05/25 12:52 04/05/25 12:51 86 04/05/25 12:42 87 23 143/88 H 94 04/05/25 12:42 87 24 93 04/05/25 12:18 36.9 C 91 H 25 H 163/92 H 93 O2 Del Method O2 Flow Rate 04/05/25 17:00 Room Air 04/05/25 16:57 04/05/25 16:00 Room Air 04/05/25 14:00 04/05/25 12:56 Room Air 0 04/05/25 12:52 Room Air 04/05/25 12:51 04/05/25 12:42 Room Air 04/05/25 12:42 Room Air 04/05/25 12:18 Room Air Laboratory Results Repeat laboratory assessment was necessary due to inadequate initial measure and laboratory error Leukocytosis of 13.84 with a neutrophilic predominance VBG with a pH of 7.46 and CO2 of 35 renal function panel unremarkable Liver function unremarkable Procalcitonin 0.03 urinalysis is currently pending in addition to viral BioFire Diagnostic Findings Portable chest AP plane view was without any acute findings but poor quality study CT chest angiogram did not reveal pulmonary embolism, there was evidence of right lower lobe bronchiolitis and bronchitis There was also incidentally found prominent circumferential wall thickening of the mid and lower esophagus Code Status & VTE Plan Code Status Full code VTE Prophylaxis Plan VTE Prophylaxis will be ordered: Yes PG Care Time/CCT Total # of Minutes Spent Total Time Spent with Patient: Total time spent is greater than 50% in coordination of care (as documented) at patient's floor/unit and/or counseling patient: Coding Level of Care Code 12245 INT INP/OBS CARE MIN Diagnoses Bronchiolitis J21.9 Acute respiratory alkalosis E87.3 Muscular dystrophy G71.00 Neutrophilic leukocytosis D72.828 Esophageal thickening K22.89 Urinary retention R33.9 Physical debility R53.81
[2025-04-05 18:52] LABS: Chlamydia pneumoniae PCR Not Detected (NotDetected); Coronavirus 229E PCR Not Detected (NotDetected); Coronavirus CoV-2 (COVID19)PCR Not Detected (NotDetected); Coronavirus HKU1 PCR Not Detected (NotDetected); Coronavirus NL63 PCR Not Detected (NotDetected); Coronavirus OC43PCR Not Detected (NotDetected); Human Metapneumovirus PCR Not Detected (NotDetected); Parainfluenza Virus 1 PCR Not Detected (NotDetected); Parainfluenza Virus 2 PCR Not Detected (NotDetected); Parainfluenza Virus 3 PCR Not Detected (NotDetected); Parainfluenza Virus 4 PCR Not Detected (NotDetected); Respiratory Syncytial VirusPCR Not Detected (NotDetected); Rhinovirus/Enterovirus PCR Not Detected (NotDetected)
[2025-04-05] MEDS: SODIUM CHLOR 7% 4 ML NEB NEB SCH ×2 (21:20→22:21)
[2025-04-05] MEDS: ALBUT/IPRATROP 3MG/0.5MG NEB 3 ML VIAL NEB PRN (21:20)
[2025-04-06 06:15] LABS: Hematocrit (blood only) 37.6 % (42.0-52.0); Hemoglobin 12.9 g/dl (14.0-18.0); Immature Granulocytes # (auto) 0.04 K/uL (0.01-0.20); Immature Granulocytes % (auto) 0.3 %; Mean Corpuscular Hemoglobin 30.9 pg (25.0-34.0); Mean Corpuscular Volume 90.0 fL (80.0-100.0); Platelet Count 319 K/uL (130-400); RDW Standard Deviation 39.4 fL (36.4-46.3); Red Blood Count 4.18 M/uL (4.70-6.10); White Blood Count 12.22 K/ul (4.8-10.8)
[2025-04-06 06:37] LABS: Albumin Level 3.6 gm/dl (3.4-5.0); Anion Gap 8.0 (3-11); Blood Urea Nitrogen 23.0 mg/dl (6-23); Calcium 8.7 mg/dl (8.6-10.3); Carbon Dioxide 23.0 mmol/L (21-32); Chloride 101.0 mmol/L (98-107); Creatinine Clr Calc Pharmacy 112.6 ml/min; Glucose 118.0 mg/dl (70-99(Fasting)); Potassium 3.8 mmol/L (3.5-5.1); Sodium 132.0 mmol/L (136-145)
--- NOTE | 2025-04-06 07:56 | Hospitalist Progress Note ---
Date of Service April 06, 2025 Assessment & Plan (1) Bronchiolitis: (2) Acute respiratory alkalosis: (3) Muscular dystrophy: (4) Neutrophilic leukocytosis: (5) Esophageal thickening: (6) Urinary retention: (7) Physical debility: Plan In summary this is a 70-year-old male who presents with viral versus bacterial bronchiolitis in the setting of an unspecified muscular dystrophy increase in the risk for progression to bacterial pneumonia #Infectious bronchiolitis // Neutrophilic leukocytosis // Acute respiratory alkalosis At this time it is difficult to determine if the patient's symptoms are primarily viral or bacterial; there is certainly no evidence for severe acute bacterial infection given the normal procalcitonin measure, lack of supplemental oxygen need, and stable hemodynamics otherwise; given the patient's physical debility and unclear chronic muscular dystrophy like syndrome there risk for progressive pulmonary disease is very high and thus agreed for observation and prophylactic treatment of bacterial community-acquired pneumonia Continue ceftriaxone 1 g IV daily through 04/09, transition to Levofloxacin 750 mg p.o. daily at discharge for the same duration if discharged before date of complete course Continue nebulized hypertonic saline to assist with expectoration Follow daily CBC and renal function panel #Esophageal thickening CT imaging did reveal incidentally distal esophageal thickening, the patient has had some reflux and mild emesis prior to his presentation; likely consequential of this however may require further testing in the outpatient setting and direct visualization #Acute urinary retention Patient was noted in the emergency department to have urinary retention of approximately 300 mL with bladder scan; one time straight catheterization per formed int he ED, reassess the need for additional intervention through his hospital stay; unclear if this is consequential of undiagnosed BPH, acute illness, or related to the patient's unspecified muscular dystrophy like syndrome Admission and Anticipated Discharge Date Admission Date: April 05, 2025 Subjective Mr. Holliday is a 70-year-old male who has an unspecified muscular dystrophy syndrome and does not follow with any long-term physician and is a member of the local [facility] community who presented to the [facility] on 04/05 due to progressive shortness of breath and productive cough over the previous 48 hours. No acute overnight events; continues to have an oxygen requirement today and remains with productive sputum Review of Systems Review of Systems: Review of constitutional, cardiovascular, pulmonary, gastrointestinal, genitourinary systems was unremarkable except for pertinent positive and negative findings discussed above Physical Exam Physical Exam: General: Adult male in no acute distress Vital Signs: Reviewed HEENT: Edentulous maxilla, limited remaining maxillary teeth with numerous caries, gingivitis; no posterior oropharyngeal cobblestoning, erythema; no tonsillar asymmetry Pulmonary: Symmetric chest wall excursion without restriction; soft crackles present in the right middle lobe, and bilateral basilar segments in the posterior lobes Cardiovascular: Regular rate and rhythm with 3/6 murmur best heard in the left fifth intercostal space parasternally; no rubs or gallops; S1 and S2 normal; right radial pulse 2+ with brisk capillary refill; no notable lower extremity edema Gastrointestinal: Soft, nontender Neurologic: Cranial nerves II through XII grossly intact; diffuse muscle loss secondary to unspecified muscular dystrophy syndrome, resulting in diffuse weakness but no asymmetry or findings of focal neurologic deficit Results & Data Results & Data Vital Signs (Past 12 Hours) Vital Signs Temp Pulse Pulse Resp BP Pulse Ox O2 Del Method 04/06/25 07:04 85 16 96 Nasal Cannula 04/05/25 21:21 82 16 97 Nasal Cannula 04/05/25 20:30 Nasal Cannula 04/05/25 20:30 37.0 C 88 18 149/81 H 97 Nasal Cannula O2 Flow Rate 04/06/25 07:04 3 04/05/25 21:21 3 04/05/25 20:30 3 04/05/25 20:30 3 Laboratory Results Leukocytosis of 11.16 from 13.84 Diagnostic Findings Repeat chest PA and lateral plain film without evidence of new or progressive pathology PG Care Time/CCT Total # of Minutes Spent Total Time Spent with Patient: Total time spent is greater than 50% in coordination of care (as documented) at patient's floor/unit and/or counseling patient: Coding Level of Care Code 76674 SUB INP/OBS CARE 235MIN Diagnoses Bronchiolitis J21.9 Acute respiratory alkalosis E87.3 Muscular dystrophy G71.00 Neutrophilic leukocytosis D72.828 Esophageal thickening K22.89 Urinary retention R33.9 Physical debility R53.81
--- NOTE | 2025-04-06 09:22 | XRay Report ---
XR chest 2V PA/lateral CLINICAL HISTORY: Reassess findings for CAP COMPARISON STUDY: 04/05/2025, CT scan dated 04/05/2025 FINDINGS: The cardiac and mediastinal contours remain stable. Calcified right mediastinal lymph nodes are again visualized. On the lateral view, there is blunting of the right posterior costophrenic ang le. This corresponds to the parenchymal opacities described on the most recent CT scan. There is a co rresponding of airspace opacities are visualized in the PA film projected beneath the right medial he midiaphragm. The left lung is clear. There is no pneumothorax. IMPRESSION: 1. Blunting of the right posterior costophrenic angle, and subtle airspace opacities projected beneat h the medial aspect of the right hemidiaphragm. These findings correspond to the parenchymal opacitie s described on the most recent CT scan. The left lung is clear. ACT 112: Negative or not required by law. Electronically signed by: Michael Conteh M.D. 04/06/2025 9:20 AM
[2025-04-06 09:31] LABS: Hematocrit (blood only) 36.4 % (42.0-52.0); Hemoglobin 12.8 g/dl (14.0-18.0); Immature Granulocytes # (auto) 0.03 K/uL (0.01-0.20); Immature Granulocytes % (auto) 0.3 %; Mean Corpuscular Hemoglobin 31.4 pg (25.0-34.0); Mean Corpuscular Volume 89.2 fL (80.0-100.0); Platelet Count 337 K/uL (130-400); RDW Standard Deviation 38.6 fL (36.4-46.3); Red Blood Count 4.08 M/uL (4.70-6.10); White Blood Count 11.16 K/ul (4.8-10.8)
[2025-04-06] MEDS: ENOXAPARIN INJ 40 MG/0.4 ML SYR SQ SCH (10:16)
[2025-04-06] MEDS: COUGH DROP (SUGAR FREE) LOZ 24 LOZ/1 BOX BUCCAL ONE (10:23)
[2025-04-06 10:26] LABS: Albumin Level 3.3 gm/dl (3.4-5.0); Anion Gap 8.0 (3-11); Calcium 8.4 mg/dl (8.6-10.3); Carbon Dioxide 23.0 mmol/L (21-32); Chloride 101.0 mmol/L (98-107); Potassium 3.7 mmol/L (3.5-5.1); Sodium 132.0 mmol/L (136-145)
[2025-04-06 10:32] LABS: Blood Urea Nitrogen 25.0 mg/dl (6-23); Creatinine Clr Calc Pharmacy 105.0 ml/min; Glucose 168.0 mg/dl (70-99(Fasting))
[2025-04-06] MEDS: cefTRIAXone SODIUM 2,000 MG/50 ML BAG IV SCH (19:22)
--- NOTE | 2025-04-06 20:28 | CT Scan Report ---
Exam(s): CT HEAD Without Contrast EXAM: CT Head Without Intravenous Contrast CLINICAL HISTORY: Reason for exam: Focal muscle weakness, chronic. TECHNIQUE: Axial computed tomography images of the head/brain without intravenous contrast. CTDI is 36 mGy and DLP is 624 mGy-cm. Automated exposure control was utilized for the study. A dose lowering technique was utilized adhering to the principles of ALARA. COMPARISON: No relevant prior studies available. FINDINGS: Brain: Generalized parenchymal volume loss. Periventricular and deep cerebral white matter hypoattenuation suggesting chronic small vessel ischemic change. Ralph-white matter differentiation maintained. No parenchymal edema. No acute intracranial hemorrhage or abnormal extra- axial collection. No mass effect of midline shift. Ventricles: No hydrocephalus. Bones/joints: No acute fracture. Soft tissues: Unremarkable. Vasculature: Intracranial atherosclerosis. Sinuses: Patchy mucosal thickening in the ethmoids and left maxillary sinus. Mastoid air cells: No significant mastoid effusion. Auditory system: Cerumen in the external auditory canals. Orbits: Lens replacements. IMPRESSION: No acute intracranial process. Electronically signed by: Nicole Hansen M.D. 04/06/25 20:27 PM
--- NOTE | 2025-04-07 07:28 | Hospitalist Progress Note ---
Date of Service April 07, 2025 Assessment & Plan (1) Bronchiolitis: (2) Acute respiratory alkalosis: (3) Neutrophilic leukocytosis: (4) Esophageal thickening: (5) Urinary retention: (6) Physical debility: Plan In summary this is a 70-year-old male who presents with viral versus bacterial bronchiolitis in the setting of an unspecified muscular dystrophy increase in the risk for progression to bacterial pneumonia #Infectious bronchiolitis // Neutrophilic leukocytosis // Acute respiratory alkalosis At this time it is difficult to determine if the patient's symptoms are primarily viral or bacterial; there is certainly no evidence for severe acute bacterial infection given the normal procalcitonin measure, lack of supplemental oxygen need, and stable hemodynamics otherwise Continue ceftriaxone 1 g IV daily through 04/09, transition to Levofloxacin 750 mg p.o. daily at discharge for the same duration if discharged before date of complete course Continue nebulized hypertonic saline to assist with expectoration No indication for continued daily laboratory assessment at this time #Esophageal thickening // Coughing with thin liquids CT imaging did reveal incidentally distal esophageal thickening, the patient has had some reflux and mild emesis prior to his presentation; likely consequential of this however may require further testing in the outpatient setting and direct visualization - Speech therapy consulted; recommend pureed diet and thickened liquids #Pressure injuries to left buttock, toes // Geriatric frailty Minimally mobile at home; no complications related to these at this time; after discussion with Serafin, the patient's son in law, it appears the patient had issues with his left leg 3-4 years ago and saw a doctor independently in the outpatient setting. When the patient returned home, he told family he was diagnosed with "MS" and simply stopped being active at that time. Since then, the patient has been quite sedentary, per Serafin's report -[facility] consulted #Acute urinary retention Patient was noted in the emergency department to have urinary retention of approximately 300 mL with bladder scan; one time straight catheterization performed int he ED, reassess the need for additional intervention through his hospital stay; unclear if this is consequential of undiagnosed BPH, acute illness, or related to the patient's unspecified muscular dystrophy like syndrome; has been without further difficulty during his hospitalization Patient's plan of care was again discussed at length with the patient's son-in-law, Serafin, with the patient's permission Admission and Anticipated Discharge Date Admission Date: April 06, 2025 Subjective Mr. Holliday is a 70-year-old male who has an unspecified muscular dystrophy syndrome and does not follow with any long-term physician and is a member of the local [facility] community who presented to the [facility] on 04/05 due to progressive shortness of breath and productive cough over the previous 48 hours. No acute overnight events; improved frequency of coughing episodes, but noted by staff to be having some episodes of aspiration while drinking. Review of Systems Review of Systems: Review of constitutional, cardiovascular, pulmonary, gastrointestinal, genitourinary systems was unremarkable except for pertinent positive and negative findings discussed above Physical Exam Physical Exam: General: Adult male in no acute distress Vital Signs: Reviewed HEENT: Edentulous maxilla, limited remaining maxillary teeth with numerous caries, gingivitis; no posterior oropharyngeal cobblestoning, erythema; no tonsillar asymmetry Pulmonary: Symmetric chest wall excursion without restriction; soft crackles present in the right middle lobe, and bilateral basilar segments in the posterior lobes Cardiovascular: Regular rate and rhythm with 3/6 murmur best heard in the left fifth intercostal space parasternally; no rubs or gallops; S1 and S2 normal; right radial pulse 2+ with brisk capillary refill; no notable lower extremity edema Gastrointestinal: Soft, nontender Neurologic: Cranial nerves II through XII grossly intact; diffuse muscle loss secondary to unspecified muscular dystrophy syndrome, resulting in diffuse weakness but no asymmetry or findings of focal neurologic deficit Skin: left buttock pressure injury; multiple unstageable toe injuries as well with some central eschar formation; none of these are tender to palpation or radiating heat Results & Data Results & Data Vital Signs (Past 12 Hours) Vital Signs Temp Pulse Resp BP Pulse Ox O2 Del Method O2 Flow Rate 04/07/25 07:22 96 H 18 92 Room Air 04/06/25 23:40 Nasal Cannula 2 04/06/25 23:08 96 Nasal Cannula 2 04/06/25 22:58 37.3 C 87 20 141/71 H 04/06/25 22:30 92 Oxymask 5 04/06/25 21:12 88 16 92 Nasal Cannula 2 04/06/25 21:00 Nasal Cannula [address] head without contrast was without acute injury; reveals chronic cerebrovascular disease, with some degree of parenchymal atrophy resulting in mild ventriculomegaly PG Care Time/CCT Total # of Minutes Spent Total Time Spent with Patient: Total time spent is greater than 50% in coordination of care (as documented) at patient's floor/unit and/or counseling patient: Coding Level of Care Code 57300 SUB INP/OBS CARE 2/35MIN Diagnoses Bronchiolitis J21.9 Acute respiratory alkalosis E87.3 Neutrophilic leukocytosis D72.828 Esophageal thickening K22.89 Urinary retention R33.9 Physical debility R53.81
[2025-04-07] MEDS: guaiFENesin 600 MG TABCR PO SCH (09:31)
--- NOTE | 2025-04-07 14:56 | Fluoroscopy Report ---
MODIFIED BARIUM SWALLOW CLINICAL HISTORY: assess for aspiration COMPARISON STUDY: None FLUOROSCOPY TIME: 1.51 minutes. Ka,r: 9.66 mGy TECHNIQUE: A modified barium swallow was performed in conjunction with Speech Pathology. The patient ingested varying consistencies of barium containing material. Video fluoroscopy was performed. FINDINGS: When swallowing thin liquid barium via cup, there was significant aspiration with a cough reflex. When swallowing nectar thick liquid via teaspoon there was aspiration with vallecular residua. When swallowing pudding via teaspoon, there was no aspiration identified. Within swallowing nectar thick liquid via cup there was silent aspiration from vallecular and pirifor m sinus residue. IMPRESSION: 1. Multiple episodes of aspiration most pronounced within liquid and nectar thick liquid. Please see speech pathology report for recommendations. ACT 112: Negative or not required by law. Electronically signed by: Michael Conteh M.D. 04/07/2025 2:54 PM
[2025-04-08] MEDS: ACETAMINOPHEN 500 MG TAB PO PRN (06:40)
[2025-04-08] MEDS: ACETAMINOPHEN 500 MG TAB ONE (09:06)
--- NOTE | 2025-04-08 19:32 | Hospitalist Progress Note ---
Date of Service April 08, 2025 Assessment & Plan (1) Aspiration pneumonia: (2) Dysphagia: (3) Esophageal thickening: (4) Multiple sclerosis: (5) Paraplegia, unspecified: (6) Urinary retention: Plan The patient is an 70 year-old man with multiple sclerosis resulting in function al paraplegia, severe dysphagia, aspiration pneumonia, pressure ulcers, and malnutrition admitted to the hospital for aspiration pneumonia. # Aspiration pneumonia Procalcitonin negative. Hypoxic, requiring 2-4 L O2 via nasal cannula. CTA chest: Right lower lobe pneumonia, no PE. Treatment plan: Continue supplemental O2 as needed. Home O2 may be required. Continue ceftriaxone for 5 days. No anaerobic coverage needed. Cont flutter valve. Ineffective cough due to neuromuscular weakness. # Severe dysphagia Pureed diet and thin liquids. No thickener due to aspiration on nectar thick. Discussed with [facility] Severe dysphagia resulting in aspiration pneumonia context of MS portends a poor prognosis Consult palliative care - he is amenable and so is family. Briefly touched on explanation of home hospice as an option. Can consider feeding tube but unlikely to meaningfully improve his prognosis # Multiple sclerosis with quadriparesis Diagnosed in 2018 - no notes but these labs from 2018 reviewed - CSF: 11 oligoclonal bands, normal protein, normal cell counts, negative cultures. Has had no MS therapy, minimal medical follow-up. Symptoms progressively worsened since 2018, right side weaker. No "step offs" just slow worsening. Wheelchair use for 3 years, unable to stand last 2 weeks. Neurology consult planned. # Pressure ulcers present on admission Ongoing wound care. Evaluated by wound ostomy nurse. # Malnutrition Dietitian assessment pending. May benefit from appetite stimulant Protein supplement # DVT Prophylaxis: enoxaparin Medical Complexity: Medical decision making was complex, high risk for clinical deterioration morbidity, or mortality for this encounter. Unstable conditions include hypoxia, severe dysphagia, multiple sclerosis with quadriparesis, pressure ulcers, and malnutrition. High risk medications and treatments include supplemental O2 and ceftriaxone. Admission and Anticipated Discharge Date Admission Date: April 06, 2025 Subjective Mr. Holliday is a 70-year-old gentleman who was admitted with pneumonia. He appears very frail and looks older than his age. A VFSS study showed he has significant trouble with swallowing, including moderate to severe difficulty with the throat and severe difficulty with the esophagus. His procalcitonin levels were negative. He is hypoxic and needs 2 liters of oxygen through a nasal cannula. He is on a pureed diet and thin liquids because he aspirated on thicker liquids. A CTA of his chest showed pneumonia in the right lower lobe but no pulmonary embolism. Mr. Holliday was diagnosed with multiple sclerosis and quadriparesis in 2018. His brother provided more history and some lab reports from 2018 which I reviewed: CSF studies showed 11 oligoclonal bands, normal protein levels, normal cell counts, and negative cultures. He has never been on any therapy for MS and has had minimal medical follow-up. His symptoms have progressively worsened, with the right side being weaker than the left. He has been using a wheelchair for about 3 years and has been unable to stand for the last 2 weeks. Mr. Holliday prefers to stay at home with his family and avoid medical care. He meets hospice criteria due to his swallowing difficulties and pneumonia. He has a large family that provides 24/7 care for him and his chronically ill . He has pressure ulcers and is receiving wound care, having been evaluated by a wound ostomy nurse. Mr. Holliday is malnourished, and an assessment from a registered dietitian is pending. Physical Exam Physical Exam: General Appearance: Frail, appears older than age. Vital signs: Reviewed past 24h vital signs in EMR, unremarkable. HEENT: Within normal limits. Respiratory: Coarse rhonchi audible, mildly tachypneic, bilateral coarse breath sounds, weak cough, difficulty clearing mucus. Cardiovascular: Regular rhythm, no murmurs, rubs, or gallops. Gastrointestinal: Soft, nontender, nondistended. Back, Musculoskeletal: Weakness in all extremities, right side weaker, significant atrophy, intermittent right lower extremity tremor. Extremities: Warm, well perfused, no edema. Skin: Warm, dry, no rashes. Neurological: AOx4, normal speech and mentation, yap x 4. Psychiatric: Normal. Results & Data Results & Data Vital Signs (Past 12 Hours) Vital Signs Temp Pulse Resp BP Pulse Ox O2 Del Method O2 Flow Rate 04/08/25 15:00 36.3 C L 88 20 129/71 93 Nasal Cannula 2 04/08/25 14:30 Nasal Cannula 2 04/08/25 08:00 36.8 C 96 H 22 118/68 96 Oxymask 10 Laboratory Results - Laboratory Studies: - Procalcitonin: Negative - Imaging: - CTA chest: Right lower lobe pneumonia, no PE - Diagnostic Testing: - VFSS: Significant aspiration, moderate to severe oropharyngeal dysphagia, severe esophageal dysphagia PG Care Time/CCT Total # of Minutes Spent Total Time Spent with Patient: Total time spent is greater than 50% in coordination of care (as documented) at patient's floor/unit and/or counseling patient: Coding Level of Care Code 22768 SUB INP/OBS CARE 3/50MIN Diagnoses Aspiration pneumonia J69.0 Dysphagia R13.10 Esophageal thickening K22.89 Multiple sclerosis G35.D Paraplegia, unspecified G82.20 Urinary retention R33.9
--- NOTE | 2025-04-09 09:14 | XRay Report ---
XR chest 1V portable CLINICAL HISTORY: pneumonia, fever COMPARISON STUDY: Chest CT April 05, 2025 and chest radiograph April 06, 2025. FINDINGS: There is no pneumothorax or pleural effusion. Cardiac size is normal. Subtle asymmetric rig ht lung interstitial thickening is present. No consolidation is identified. Linear left basilar densi ties represent atelectasis. Pulmonary vascularity is normal. Nipple shadows project over the chest. IMPRESSION: Mild asymmetric right lung interstitial thickening which corresponds to the alveolar opa [place] on chest CT of April 05, 2025 and are consistent with an infectious process such as bronchop neumonia. ACT 112: Negative or not required by law. Electronically signed by: Flo Erickson M.D. 04/09/2025 9:13 AM
--- NOTE | 2025-04-09 10:24 | Neurology Consultation ---
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 The right upper extremity is moderately weak. The left arm and leg had better strength and I anticipated and individual muscles have decent power. There is spasticity in all limbs but the right leg is worse than the left and the right arm is worse than the left. There are upper motor neuron signs present including relatively brisk reflexes and upgoing toes with sustained clonus in the ankles bilaterally. Etiology of this weakness and spasticity is not apparent but is probably cervical spinal cord in origin. Bilateral brain lesions (such as she would fine with multiple sclerosis) is a possibility as well. Certainly, MS of the spinal cord could create this picture. Other etiologies need to be considered. There is nothing to indicate a primary myopathy or muscular dystrophy in this patient. Although there are sensory issues in the right leg the left seems spared and I believe that a polyneuropathy in general is less likely. The patient was given a diagnosis of MS by a neurologist 8 years ago but I really do not have any records. The patient deserves to be reevaluated and treatment considered for his condition. No specific disease modifying treatment will be considered until after testing has been completed. Patient has agreed to testing and consideration of treatment Recommendations: 1. Laboratory studies, to include B12, TSH, vitamin D, CK, aldolase, Lyme antibody titers with Western blot confirmation, JULIO CESAR 12 profile (to evaluate for other immunologic diseases which could create MS mimics), JCV virus antibody titer, and Treponema pallidum antibody titer 2. MRIs of the brain, cervical spine, and thoracic spine, all with and without contrast 3. Could consider, after the above, IV Solu-Medrol (dose will be determined after testing) to see if we can make short-term improvements in his strength and function 4. Continue physical and Occupational Therapy consults 5. Additional recommendations regarding testing and treatment will be made after the above and he will need follow-up. Many options are available for treating MS (oral, subcu injections, and IV treatments) 6. The patient needs PCP follow-up. In the past he has seen primary care [facility] should reestablish there. 7. He will need follow-up with neurology 2 to 3 weeks after discharge with neurology PA Overall, I spent a total of 90 minutes with this case including review of records, review of CT films, direct evaluation of the patient at bedside, report generation, and discussion of the case with the patient, 2 daughters, and RN at bedside, and Dr. Luna including differential diagnosis and treatment options. History of Present Illness Reason for Consultation: Patient is a 70-year-old, who I for neurologic evaluation regarding history of MS and profound weakness was asked to see at the request of Dr. Luna, Requesting Physician: Dr. Luna Attending Physician: Karla Luna MD History of Present Illness Patient is accompanied by 2 of his daughters at bedside and they all add to the history. Apparently, back in 2016 records show that the patient had leg weakness possibly due to peripheral vascular disease. He was on 81 mg aspirin daily at the time. The weakness was worse with activity/walking. He had burning sensation in his legs as well. There was pain in his hips and knees. In August 2016 he had a surgical procedure by Dr. Figueredo regarding posterior dislocation intraocular lens implant. Apparently cataract surgery had failed and he ended up having opacification of the cornea on the left with no vision out of the left eye. Sometime in 2018, he had evaluation for his weakness. I do not have a record of what test were done except that he had a lumbar puncture done. There were 11 oligoclonal bands. He did see a neurologist (unknown name) and stated that he was evaluated in [place]. Apparently, at that time, back in 2016 records show that the patient had leg weakness possibly due to peripheral vascular disease. He was on 81 mg aspirin daily at the time. The weakness was worse with activity/walking. He had burning sensation in his legs as well. There was pain in his hips and knees. IV steroids were to be given but the patient did not want to make trips to the hospital to get these. He was lost to follow-up and did not see neurology or pursue treatment. Gradually, over the ensuing years, he became weaker particularly in the legs but also the arms. 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 He has been in a wheelchair for the last several years and has difficulty standing. The last 2 weeks have been particularly weak and he has not been able to stand and hold his weight for 2 weeks. He was admitted on April 05 with dyspnea and cough resulting in a diagnosis of right lower lobe bronchopneumonia. He has been receiving ceftriaxone IV and feels that his breathing is improved currently compared to admission. He still has a cough. He denies headaches, pain, dizziness, or new vision problems. He cannot see out of the left eye. He feels that his right arm is too weak to be of use to him and feeds himself with his left. CT scan of the head showed generalized atrophy and changes consistent with old small vessel ischemic disease. I reviewed these films. There were no acute changes. Allergies Allergy/AdvReac Type Severity Reaction Status Date / Time No Known Allergies Allergy Unverified 04/05/25 16:43 Home Medications Medication Instructions Recorded Confirmed Type Tylenol PM Extra Strength 500 mg PO DAILY PRN Pain 04/05/25 04/05/25 History Unkn 2 tab PO BID 04/05/25 04/05/25 History Patient History Surgical History History of cataract surgery Family History (Updated 04/09/25 @ 10:30 by Robert Prieto MD) Mother , age 72 of heart issues Myocardial infarction Father , age 72 of "bone" cancer Cancer Denies family history of Ovarian cancer Prostate cancer Breast cancer Colorectal cancer Social History (Updated 04/09/25 @ 10:31 by Robert Prieto MD) Smoking Status: Former smoker Tobacco Type: Cigarettes Age Started Using Tobacco: 16; Age Quit Using Tobacco: 66; Second Hand Exposure: No; Do You Dip or Chew Tobacco: No; Hx Alcohol Use: No Hx Substance Use: No Preferred Language: Beninese Communication Ability: Impaired 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 Required: No Beliefs That Will Affect Care: Cultural Cultural Beliefs: from [facility] marital status: Current Living Situation: Family current occupational status: disabled 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 How many Children do You have: 6 Feels Safe at Home: Yes Childhood Exposure to Second-Hand Smoke: Yes Diet: regular caffeine: Yes Dental Care, Regularly: No Physical Activity Frequency Comment: as much as he can be in a wheelchair Seatbelt Use: sometimes Sunscreen Use: No Assistive Devices: Glasses, Walker and Wheelchair Review of Systems Constitutional: no fever, no fatigue and no weakness Eyes: no diplopia, no eye pain and no worsening vision Ear, Nose, Mouth, Throat: no ear pain, no tinnitus, no hearing loss, no dizziness, no snoring, no hoarseness and no dysphagia Respiratory: no cough and no dyspnea Cardiovascular: no chest pain, no palpitations and no lightheadedness Gastrointestinal: no abdominal pain, no nausea and no vomiting Musculoskeletal: no back pain, no neck pain, no radicular pain, no joint pain and no myalgia Integumentary: no rash and no lesions Neurologic: + gait abnormality and + generalized wea kness; no localized weakness, no tingling, no numbness, no tremor(s), no abnormal movements, no headache(s), no abnormal speech, no confusion and no memory loss Psychiatric: no depression, no irritability, no anxiety, no difficulty concentrating, no confusion and no hallucinations Endocrine: no fatigue and no flushing Hematologic / Lymphatic: no easy bleeding and no easy bruising Allergy / Immunological: no urticaria and no problem reported Exam (Neuro) Physical Exam: The patient is right-handed. The patient is awake, alert, and attentive. Speech is without any obvious aphasia or dysarthria. Mood and affect are normal and appropriate. Appearance and grooming are normal. Short and long-term memory are reasonable to conversation although he has a delay in answering questions and responding. Short-term memory is probably impaired. Pupil is 3mm on the right and reactive to light. The cornea is opacified on the left. extraocular eye muscles are intact, however, there is some nystagmus with right gaze in the right eye. Visual acuity and visual queen seem normal grossly to confrontation in the right eye. There are no deficits to sensation in the face in all 3 distributions of the fifth cranial nerve bilaterally. Corneal reflexes are positive bilaterally. Facial strength and symmetry was normal bilaterally. Hearing seems intact grossly to voice and finger rub bilaterally. Palate moves well without asymmetry. There is normal sternocleidomastoid and trapezius strength bilaterally. Tongue is midline with good strength bilaterally. Neck has a full range of motion without discomfort. There are no cervical bruits bilaterally. There are no cranial or ocular bruits. Heart is without murmur. There is a regular rhythm and rate. Cervical, thoracic, and lumbar spine are nontender to palpation. Gait could not be tested. He could not sit up either. With outstretched arms there is weakness in the right shoulder so the whole arm dips. There are no resting, postural, or action tremors. There is no ataxia with finger to nose testing. There is decreased facility in the right hand but facility in the left hand was reasonable. No other abnormal involuntary movements are noted. Motor strength is 4+/5 diffusely in the left upper extremity including deltoids, biceps, triceps, brachioradialis, wrist flexors and extensors, flag maker, and intrinsic hand muscles. There was minimal spasticity/clumsiness. Motor strength in the right upper extremity was 4/5 and there was more spasticity/clumsiness. Motor strength is 4+/5 diffusely in the left lower extremity including hip flexors, quadriceps, hamstrings, gastrocnemius, tibialis anterior, tibialis posterior, and Peroneii muscles bilaterally. Motor strength in the right lower extremity is 0-1/5 in all muscles proximally and distally. There is right greater than left leg spasticity bilaterally There is no tenderness to palpation and muscle bulk was unremarkable. No fasciculations were seen. Sensory examination reveals a decrease sensation to the pin and touch diffusely in the right lower extremity compared to the left which is normal. The hands and arms are spared as is the face. Reflexes are 2/4 in the biceps, triceps, brachioradialis, quadriceps, and Achilles tendons bilaterally. There is sustained clonus with passive stretch at the ankles bilaterally but the right lower extremity spasticity is greater than the left lower extremity. Reflexes are little brisker in the right arm compared to the left and the right leg compared to the left Toes are upgoing with plantar stimulation bilaterally. Results & Data Vital Signs (Past 12 Hours) Vital Signs Temp Pulse Resp BP Pulse Ox O2 Del Method O2 Flow Rate 04/09/25 07:58 36.8 C 86 18 130/72 92 Oxymask 4 04/09/25 07:01 85 16 94 Oxymask 4 04/08/25 23:52 37.6 C H 04/08/25 23:06 38.3 C H 92 H 20 138/79 93 Oxymask 4 PG Care Time/CCT Total # of Minutes Spent Total Time Spent with Patient: Total time spent is greater than 50% in coordination of care (as documented) at patient's floor/unit and/or counseling patient: Coding Level of Care Code 92438 INT INP/OBS CARE 3/75MIN Diagnoses Spastic quadriparesis G82.50 Multiple sclerosis G35.D Time Spent (min) 90
--- NOTE | 2025-04-09 12:58 | Electrocardiogram Report ---
Test Reason : Blood Pressure : */* mmHG Vent. Rate : 91 BPM Atrial Rate : 91 BPM P-R Int : 154 ms QRS Dur : 96 ms QT Int : 370 ms P-R-T Axes : 66 72 70 degrees QTcB Int : 455 ms Normal sinus rhythm Normal ECG No previous ECGs available Confirmed by Jason Simmons ([id number]) on 04/09/2025 12:58:28 PM Referred By: REFERRED SELF Confirmed By: Jason Simmons
[2025-04-09] MEDS: AZITHROMYCIN 250 MG TAB PO SCH (15:39)
[2025-04-09 16:50] LABS: Creatine Kinase 410.0 U/L (30-223)
[2025-04-09 17:05] LABS: Thyroid Stimulating Hormone 1.83 uIu/ml (0.300-4.500)
--- NOTE | 2025-04-09 18:29 | Hospitalist Progress Note ---
Date of Service April 09, 2025 Assessment & Plan (1) Aspiration pneumonia: (2) Dysphagia: (3) Esophageal thickening: (4) Multiple sclerosis: (5) Paraplegia, unspecified: (6) Urinary retention: Plan The patient is an 70 year-old man with multiple sclerosis resulting in function al paraplegia, severe dysphagia, aspiration pneumonia, pressure ulcers, and malnutrition admitted to the hospital for aspiration pneumonia. # Aspiration pneumonia Procalcitonin negative. Hypoxic, requiring 2-4 L O2 via nasal cannula. CTA chest: Right lower lobe pneumonia, no PE. Treatment plan: Continue supplemental O2 as needed. Home O2 may be required. Continue ceftriaxone for 5 days. he had a fever so added azithromycin x 3 days. If persistent fevers may need broader antibiotic.No anaerobic coverage needed. Cont flutter valve. Ineffective cough due to neuromuscular weakness. A.m. CBC and BMP # Severe dysphagia Pureed diet and nectar thick. Discussed with [facility] Severe dysphagia resulting in aspiration pneumonia context of MS portends a poor prognosis, unless he can improve with treatment Can consider feeding tube but unlikely to meaningfully improve his prognosis. holding off on palliative care consult pending more information from neurological testing # left greater than right weakness, quadriparesis, progressive neurological decline. Was diagnosed with MS in 2018. Also in the distant past he was thought to have a muscular dystrophy. has had essentially no physician follow- up since 2018 no further testing or treatment. Consulted neurology Dr. Prieto discussed with him today. Mr. Holliday and his family desire further evaluation and treatment if possible - MRI brain CT and L-spine with and without contrast - B12, TSH, vitamin D, CK, aldolase, Lyme, JULIO CESAR 12 panel, AV virus and T. pallidum serology ordered as per Dr. Prieto's recommendations - depending on MRI results may be candidate for high-dose Solu-Medrol this admission # Pressure ulcers present on admission Ongoing wound care. Evaluated by wound ostomy nurse. # Malnutrition consulted dietitian May benefit from appetite stimulant Protein supplement # DVT Prophylaxis: enoxaparin Admission and Anticipated Discharge Date Admission Date: April 06, 2025 Subjective fever to Tmax 38.3 overnight, he did not notice any chills or sweats, he feels like his shortness of breath and cough has improved he met with a neurologist Dr. Prieto this morning plans to undergo workup for his neurologic condition and potentially treatment Physical Exam Physical Exam: General Appearance: Frail, appears older than age. Vital signs: Reviewed past 24h vital signs in EMR, unremarkable. HEENT: Within normal limits. Respiratory: lungs are now clear to auscultation bilaterally continues to have a loose cough but no rhonchi today Cardiovascular: Regular rhythm, no murmurs, rubs, or gallops. Gastrointestinal: Soft, nontender, nondistended. Back, Musculoskeletal: Weakness in all extremities, right side weaker, significant atrophy, intermittent right lower extremity tremor. Extremities: Warm, well perfused, no edema. Skin: Warm, dry, no rashes. Neurological: AOx4, normal speech and mentation, yap x 4. Psychiatric: Normal. Results & Data Results & Data Vital Signs (Past 12 Hours) Vital Signs Temp Pulse Resp BP Pulse Ox O2 Del Method O2 Flow Rate 04/09/25 17:16 37.5 C 91 H 18 147/82 H 94 Room Air 04/09/25 08:03 Nasal Cannula, Oxymask 4 04/09/25 07:58 36.8 C 86 18 130/72 92 Oxymask 4 04/09/25 07:01 85 16 94 Oxymask 4 PG Care Time/CCT Total # of Minutes Spent Total Time Spent with Patient: Total time spent is greater than 50% in coordination of care (as documented) at patient's floor/unit and/or counseling patient: Coding Level of Care Code 39352 SUB INP/OBS CARE 3/50MIN Diagnoses Aspiration pneumonia J69.0 Dysphagia R13.10 Esophageal thickening K22.89 Multiple sclerosis G35.D Paraplegia, unspecified G82.20 Urinary retention R33.9
--- NOTE | 2025-04-10 01:41 | Magnetic Resonance Report ---
Exam(s): MRI HEAD Without Contrast EXAM: MR Head Without Intravenous Contrast CLINICAL HISTORY: Reason for exam: progressive weakness, poss MS. OTHER: Other Notes: weakness worsening last two weeks has ms best scans possible due to pt motion, pt squeezed call melvin several times restless leg syndrome, unable to hold still, no contrast given due to pt being unable to continue with test sent all studies without contrast *LUMBAR ONLY LIMITED STUDY* SENT ALL SEQUENCES, pt could not continue TECHNIQUE: Magnetic resonance images of the head/brain without intravenous contrast in multiple planes. COMPARISON: Prior head CT from April 06, 2025. FINDINGS: Brain: Remote ischemic injuries of the bilateral capsules and thalami. Advanced nonspecific white matter changes. No mass. No hemorrhage. No acute infarct. The flow voids at the base the brain are intact. There white matter lesions within the medulla and proximal cervical cord. There white matter lesions within the cerebellum, brachium pontine and right dyllan. There is moderate atrophy of the corpus callosum. Ventricles: Moderate ventriculomegaly. Bones/joints: Unremarkable. No acute fracture. Sinuses: Chronic maxillary and ethmoid sinusitis. No acute sinusitis. Mastoid air cells: There is a small amount of fluid in the right mastoid air cells. No mastoid effusion. Orbits: Lens replacements. IMPRESSION: No evidence of acute intracranial pathology. Extensive pericallosal white matter disease with white matter lesions in the medulla, proximal cervical cord, cerebellum, brachium pontis and dyllan, which may be seen with demyelinating disease. Recommend postcontrast imaging for further evaluation. Electronically signed by: Jaymie Zuluaga MD 04/10/25 01:40 AM
--- NOTE | 2025-04-10 01:44 | Magnetic Resonance Report ---
Exam(s): MRI C SPINE EXAM: MR Cervical Spine Without Intravenous Contrast CLINICAL HISTORY: Reason for exam: progressive weakness, poss MS. OTHER: Other Notes: weakness worsening last two weeks has ms best scans possible due to pt motion, pt squeezed call melvin several times restless leg syndrome, unable to hold still, no contrast given due to pt being unable to continue with test sent all studies without contrast *LUMBAR ONLY LIMITED STUDY* SENT ALL SEQUENCES, pt could not continue TECHNIQUE: Magnetic resonance images of the cervical spine without intravenous contrast in multiple planes. COMPARISON: No relevant prior studies available. FINDINGS: This study is limited secondary motion artifact. Vertebrae: There are 7 cervical type vertebral bodies with a mild generalized curved to the right and straightening normal cervical lordosis. There is normal vertebral body height and alignment. The bone marrow signal is heterogeneous with reactive endplate changes. No acute fracture. Spinal cord: There are multiple lesions within the medulla and prominent cervical cord. The craniocervical junction is normal without evidence of Chiari reduction. Soft tissues: The cervical flow voids are intact. DISCS/SPINAL CANAL/NEURAL FORAMINA: C2-C3: Unremarkable. No significant disc disease. No stenosis. C3-C4: Unremarkable. No significant disc disease. No stenosis. C4-C5: Unremarkable. No significant disc disease. No stenosis. C5-C6: Unremarkable. No significant disc disease. No stenosis. C6-C7: Unremarkable. No significant disc disease. No stenosis. C7-T1: Unremarkable. No significant disc disease. No stenosis. IMPRESSION: Multiple white matter lesions in the medulla oblongata and proximal cervical cord, which can be seen with demyelinating disease. Recommend postcontrast imaging for further evaluation. Electronically signed by: Jaymie Zuluaga MD 04/10/25 01:43 AM
--- NOTE | 2025-04-10 01:49 | Magnetic Resonance Report ---
Exam(s): MRI T SPINE Without Contrast EXAM: MR Thoracic Spine Without Intravenous Contrast CLINICAL HISTORY: Reason for exam: progressive weakness, poss MS. OTHER: Other Notes: weakness worsening last two weeks has ms best scans possible due to pt motion, pt squeezed call melvin several times restless leg syndrome, unable to hold still, no contrast given due to pt being unable to continue with test sent all studies without contrast *LUMBAR ONLY LIMITED STUDY* SENT ALL SEQUENCES, pt could not continue TECHNIQUE: Magnetic resonance images of the thoracic spine without intravenous contrast in multiple planes. COMPARISON: No relevant prior studies available. FINDINGS: This study is limited secondary to motion artifact. Vertebrae: There are 12 thoracic type vertebral bodies with a mild levoscoliosis and normal thoracic kyphosis. There is normal vertebral body height and alignment. No acute fracture. Discs/spinal canal/neural foramina: No acute findings. No significant disc disease. No spinal canal stenosis. Spinal cord: Unremarkable. Normal signal. Soft tissues: Unremarkable. IMPRESSION: No evidence of acute thoracic spine pathology in this motion degraded study. Electronically signed by: Jaymie Zuluaga MD 04/10/25 01:48 AM
--- NOTE | 2025-04-10 01:52 | Magnetic Resonance Report ---
Exam(s): MRI L SPINE Without Contrast EXAM: MR Lumbar Spine Without Intravenous Contrast CLINICAL HISTORY: Reason for exam: progressive weakness, poss MS. OTHER: Other Notes: weakness worsening last two weeks has ms best scans possible due to pt motion, pt squeezed call melvin several times restless leg syndrome, unable to hold still, no contrast given due to pt being unable to continue with test sent all studies without contrast *LUMBAR ONLY LIMITED STUDY* SENT ALL SEQUENCES, pt could not continue TECHNIQUE: Magnetic resonance images of the lumbar spine without intravenous contrast in multiple planes. COMPARISON: No relevant prior studies available. FINDINGS: This study is limited secondary to motion artifact and limited sequences secondary to patient's inability to tolerate examination. Vertebrae: There are 5 lumbar type vertebral bodies with a mild dextroscoliosis and normal thoracic kyphosis. There is normal vertebral body height and alignment. The bone marrow signal is heterogeneous with reactive endplate changes, areas of focal fat or venous malformations. No acute fracture. Spinal cord: The conus is normal size, shape and signal characteristics, terminating at T12-L1. Soft tissues: Unremarkable. DISCS/SPINAL CANAL/NEURAL FORAMINA: L1-L2: There is mild disc degeneration with annular disc bulge flattening the ventral thecal sac. L2-L3: Advanced disc degeneration with posterior disc osteophyte complex flattening the ventral thecal sac. L3-L4: There is mild disc degeneration with annular disc bulge flattening the ventral thecal sac. L4-L5: There is mild disc degeneration with annular disc bulge flattening the ventral thecal sac. L5-S1: Advanced disc degeneration with posterior disc osteophyte complex flattening the ventral thecal sac. IMPRESSION: No evidence of acute lumbar spine pathology in this limited study. Electronically signed by: Jaymie Zuluaga MD 04/10/25 01:51 AM
[2025-04-10 06:42] LABS: Hematocrit (blood only) 31.2 % (42.0-52.0); Hemoglobin 10.6 g/dL (14.0-18.0); Mean Corpuscular Hemoglobin 30.3 pg (25.0-34.0); Mean Corpuscular Volume 89.1 fL (80.0-100.0); Platelet Count 349 K/uL (130-400); RDW Standard Deviation 39.8 fL (36.4-46.3); Red Blood Count 3.50 M/uL (4.70-6.10); White Blood Count 9.19 K/ul (4.8-10.8)
[2025-04-10 07:13] LABS: Anion Gap 9.0 (3-11); Blood Urea Nitrogen 33.0 mg/dl (6-23); Calcium 8.5 mg/dl (8.6-10.3); Carbon Dioxide 25.0 mmol/L (21-32); Chloride 102.0 mmol/L (98-107); Creatinine Clr Calc Pharmacy 133.9 ml/min; Glucose 118.0 mg/dl (70-99(Fasting)); Potassium 3.6 mmol/L (3.5-5.1); Sodium 136.0 mmol/L (136-145)
--- NOTE | 2025-04-10 10:24 | Neurology Progress Note ---
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 The right upper extremity is moderately weak. The left arm and leg had better strength and I anticipated and individual muscles have decent power. There is spasticity in all limbs but the right leg is worse than the left and the right arm is worse than the left. There are upper motor neuron signs present including relatively brisk reflexes and upgoing toes with sustained clonus in the ankles bilaterally. Given the multiple lesions in the brain and cervical spinal cord seen on MRIs, the LP results from 2018, and his clinical picture of upper motor neuron findings bilaterally, the probable diagnosis is a central nervous system inflammatory disease consistent with multiple sclerosis. He has not been treated over time. Other (inflammatory) etiologies need to be considered. There is nothing to indicate a primary myopathy or muscular dystrophy in this patient. Although there are sensory issues in the right leg the left seems spared and I believe that a polyneuropathy in general is less likely. The patient was given a diagnosis of MS by a neurologist 8 years ago and never received any of the recommended treatment. He has had a progressively deteriorating neurologic course since (mostly due to spinal cord lesions) Patient has vitamin B12 deficiency which we will add to weakness and sensory issues in his lower extremities. This can also give him cognitive problems. Patient has agreed to testing and consideration of treatment Recommendations: 1. Awaiting JULIO CESAR profile 12 and AV virus antibody titers 2. Consider IV Solu-Medrol per protocol for MS: 1 g IV Solu-Medrol daily for 3 days followed by a Medrol Dosepak 3. Continue physical and Occupational Therapy consultsincrease activity as able. 4. He could be an excellent rehabilitation hospital candidate for strengthening of the limbs and gait training, if he would be agreeable 5. Additional recommendations regarding testing and treatment will be made after the above and he will need follow-up in neurology [place]. Many options are available for treating MS (oral, subcu injections, and IV treatments) 6. The patient needs PCP follow-up. In the past he has seen primary care [facility] should reestablish there. 7. Follow-up with neurology 2 to 3 weeks after discharge with neurology [place] Overall, I spent a total of 50 minutes with this case including review of records, review of MRI films, direct evaluation of the patient at bedside, report generation, and discussion of the case with the patient and RN at bedside, and Dr. Luna including differential diagnosis and treatment options. Admission and Anticipated Discharge Date Admission Date: April 06, 2025 Subjective Patient is doing fairly well with no new symptoms or pain. Nursing reports no new issues also. Patient underwent MRIs of the brain, cervical, thoracic, and lumbar spines with some difficulty. He has restless leg syndrome and inability to hold still. Contrast was not given. I reviewed the images all 4 of these MRI studies. MRI of the brain shows significant atrophy in general with extensive white matter disease and lesions in the medulla, cerebellum, dyllan and brachium pontis. MRI of the cervical spine showed multiple lesions in the upper cervical cord. MRI of the thoracic spine showed no obvious cord lesions MRI of the lumbar spine (as well as the cervical and thoracic spines) showed nonspecific degenerative changes of disc and bone without significant spinal stenosis CBC and CHEM profile were unremarkable except for glucose of 118. B12 was markedly low at 112 and vitamin D was borderline at 30. TSH was normal at 1.8. Lyme and treponema antibody titers were negative/normal. JULIO CESAR 12 and AV virus titers are pending I reviewed lumbar puncture results from September 28, 2017 at [facility], [place], [place]. There were 2 white cells and no red cells. Protein was 27 (normal 15-45). Special protein studies revealed a markedly elevated IgG synthesis rate of 14.5 (normal -9 0.9-3.3). In addition there were 11 oligoclonal bands in the CSF not detected in the serum. Cultures were negative. Vitamin B12 at that time was 771 and a sed rate was 14. Lyme antibody titer was negative and JULIO CESAR was positive at 1-80. Results & Data Vital Signs (Past 12 Hours) Vital Signs Temp Pulse Resp BP Pulse Ox O2 Del Method O2 Flow Rate 04/10/25 09:42 Nasal Cannula 3 04/10/25 08:12 36.7 C 89 18 141/79 H 93 Nasal Cannula 3 04/10/25 07:06 95 H 16 97 Nasal Cannula 4 04/09/25 23:37 Nasal Cannula 4 04/09/25 23:08 36.8 C 92 H 19 130/72 94 Nasal Cannula 4 Exam (Neuro) Physical Exam: He is awake and alert. Speech is reasonable with some minimal dysarthria but otherwise no aphasia. Mood and affect is normal and appropriate. Thought processes are intact to conversation and he follows one-step commands well although he is slow to answer at times. Extraocular muscles are intact without nystagmus. There is no facial droop. Tongue is midline. Strength is essentially 5/5 in the left upper extremity. No abnormal involuntary movements are noted. PG Care Time/CCT Total # of Minutes Spent Total Time Spent with Patient: Total time spent is greater than 50% in coordination of care (as documented) at patient's floor/unit and/or counseling patient: Coding Level of Care Code 52361 SUB INP/OBS CARE 3/50MIN Diagnoses Spastic quadriparesis G82.50 Multiple sclerosis G35.D Time Spent (min) 50
[2025-04-10] MEDS: CYANOCOBALAMIN 1000 MCG/ML VIAL IM SCH (10:26)
[2025-04-10] MEDS: THIAMINE HCL 500 MG in SODIUM CHLORIDE 0.9% 50 ML IV SCH (10:27)
[2025-04-10] MEDS ORDERED: LOPERAMIDE HCL 2 MG CAP PO PRN (11:35)
[2025-04-10] MEDS: ADVANCED PROBIOTIC 625 MG CAPSULE PO SCH (13:00)
[2025-04-10] MEDS: methylPREDNISolone 1,000 MG in NSS 250 ML IV SCH (13:24)
--- NOTE | 2025-04-10 17:45 | Hospitalist Progress Note ---
Date of Service April 10, 2025 Assessment & Plan (1) Aspiration pneumonia: (2) Multiple sclerosis: (3) Dysphagia: (4) Esophageal thickening: (5) Paraplegia, unspecified: (6) Urinary retention: Plan The patient is an 70 year-old man with multiple sclerosis resulting in functional paraplegia, severe dysphagia, aspiration pneumonia, pressure ulcers, and malnutrition admitted to the hospital for aspiration pneumonia. # Aspiration pneumonia Procalcitonin negative. Hypoxic, requiring 2 L O2 via nasal cannula. improved CTA chest: Right lower lobe pneumonia, no PE. Treatment plan: Continue supplemental O2 as needed. Home O2 may be required. Continue ceftriaxone for 5 days. he had a fever so added azithromycin x 3 days. fever resolved Cont flutter valve. Ineffective cough due to neuromuscular weakness. CBC and BMP reviewed today remarkable for resolution of leukocytosis, stable anemia and normal renal function # multiple sclerosis left greater than right weakness, quadriparesis, progressive neurological decline. Was diagnosed with MS in 2018. Also in the distant past he was thought to have a muscular dystrophy. has had essentially no physician follow- up since 2018 no further testing or treatment. Consulted neurology Dr. Prieto. discussed MRI findings and treatment plan with him today especially given the history of elevated oligoclonal bands the picture is consistent with multiple sclerosis - start treatment with Solu-Medrol 1 g IV daily x 3 days then Medrol Dosepak - multiple labs from neurology are pending. CK was mildly elevated which could be related to vitamin B deficiency. TSH was normal. Lyme screen negative. T. pallidum serology was negative. Pending tests/send outs include: vitamin D, aldolase, JULIO CESAR 12 panel, AV virus - will need outpatient follow-up with neurology for ongoing treatment # vitamin B12 deficiency - [place] [address]191 mcg IM daily x 7 days followed by continued maintenance. Will also treat empirically for B1 deficiency with thiamine 500 mg IV every 8 hours x 8 doses vitamin D level is pending # Severe dysphagia Pureed diet and nectar thick. Discussed with [facility] Severe dysphagia resulting in aspiration pneumonia context of MS portends a poor prognosis, unless he can improve with treatment Can consider feeding tube but unlikely to meaningfully improve his prognosis. holding off on palliative care consult pending more information from neurological testing # Pressure ulcers present on admission Ongoing wound care. Evaluated by wound ostomy nurse. # Severe malnutrition consulted dietitian appetite stimulant start mirtazapine at HS Protein supplement # DVT Prophylaxis: enoxaparin Admission and Anticipated Discharge Date Admission Date: April 06, 2025 Subjective Seen with PT and OT, was able to sit on EOB with assistance did not fall backward but kept going to the left needing some support RLE very weak, has some use of RUE and LUE LLE are strong Coughing but only short of breath with significant exertion. Gets in WC and requests to propel in HW Physical Exam 2 Physical Exam: General Appearance: Frail, appears older than age. Vital signs: Reviewed past 24h vital signs in EMR, unremarkable. HEENT: Within normal limits. Respiratory: loose cough fairly clear, tachypneic after exertion See above HPI for rest of exam Psychiatric: Normal. Results & Data Results & Data Vital Signs (Past 12 Hours) Vital Signs Temp Pulse Resp BP Pulse Ox O2 Del Method O2 Flow Rate 04/10/25 15:16 36.7 C 88 18 144/78 H 92 Nasal Cannula 3 04/10/25 09:42 Nasal Cannula 3 04/10/25 08:12 36.7 C 89 18 141/79 H 93 Nasal Cannula 3 04/10/25 07:06 95 H 16 97 Nasal Cannula 4 Laboratory Results Total CK is 410, B12 is 112 04/10/25 04:44 04/10/25 04:44 MRI brain, and C/T/L-spine completed last night he was not able to lie still enough to do the postcontrast images. There are multiple white matter lesions in the brain and C-spine which are suggestive of demyelinating disease. No lesions in T or L-spine PG Care Time/CCT Total # of Minutes Spent Total Time Spent with Patient: Total time spent is greater than 50% in coordination of care (as documented) at patient's floor/unit and/or counseling patient: Coding Level of Care Code 74221 SUB INP/OBS CARE 3/50MIN Diagnoses Aspiration pneumonia J69.0 Multiple sclerosis G35.D Dysphagia R13.10 Esophageal thickening K22.89 Paraplegia, unspecified G82.20 Urinary retention R33.9
[2025-04-10] MEDS: MIRTAZAPINE TAB 15 MG TAB PO SCH (19:44)
--- NOTE | 2025-04-11 15:15 | Hospitalist Progress Note ---
Date of Service April 11, 2025 Assessment & Plan (1) Aspiration pneumonia: (2) Multiple sclerosis: (3) Dysphagia: (4) Esophageal thickening: (5) Paraplegia, unspecified: (6) Urinary retention: Plan The patient is an 70 year-old man with multiple sclerosis resulting in function al paraplegia, severe dysphagia, aspiration pneumonia, pressure ulcers, and malnutrition admitted to the hospital for aspiration pneumonia. # Aspiration pneumonia Procalcitonin negative. CTA chest: Right lower lobe pneumonia, no PE. treated with IV ceftriaxone, Azithromycin. leukocytosis fever and hypoxia has resolved. last dose of antibiotics 04/11 # multiple sclerosis left greater than right weakness, quadriparesis, progressive neurological decline. Was diagnosed with MS in 2018. Also in the distant past he was thought to have a muscular dystrophy. has had essentially no physician follow- up since 2018 no further testing or treatment. Consulted neurology Dr. Prieto. discussed MRI findings and treatment plan with him today especially given the history of elevated oligoclonal bands the picture is consistent with multiple sclerosis - started treatment with Solu-Medrol 1 g IV daily x 3 days ( first dose 04/10) then Medrol Dosepak - multiple labs from neurology are pending. CK was mildly elevated which could be related to vitamin B deficiency. TSH was normal. Lyme screen negative. T. pallidum serology was negative. Pending tests/send outs include: vitamin D, aldolase, JULIO CESAR 12 panel, AV virus - a.m. CBC and BMP - will need outpatient follow-up with neurology for ongoing treatment # vitamin B12 deficiency - started treatment on 04/10 with 1000 mcg IM daily x 7 days followed by continued maintenance. Will also treat empirically for B1 deficiency with thiamine 500 mg IV every 8 hours x 8 doses vitamin D level is pending # Severe dysphagia Pureed diet and nectar thick. Discussed with [facility] Severe dysphagia resulting in aspiration pneumonia context of MS portends a poor prognosis, unless he can improve with treatment Can consider feeding tube but unlikely to meaningfully improve his prognosis. holding off on palliative care consult pending more information from neurological testing # Pressure ulcers present on admission Ongoing wound care. Evaluated by wound ostomy nurse. # Severe malnutrition consulted dietitian appetite stimulant start mirtazapine at HS Protein supplement # DVT Prophylaxis: enoxaparin high risk medications: High-dose intravenous Solu-Medrol Admission and Anticipated Discharge Date Admission Date: April 06, 2025 Subjective He has been without a fever since the evening of April 08, 2025. His heart rate is in the low 90s, and his blood pressure is acceptable. He is on room air today maintaining oxygen saturations in the 90s. There have been no significant events. He reports feeling okay and hasn't noticed any side effects from the steroids. His coughing has definitely improved, and he no longer needs supplemental oxygen. He does not feel short of breath. There have been no changes in his neurological status. He is awake, alert, and oriented to the basic situation, although he seems to have some mild confusion and forgetfulness from day to day. His speech is intact. He has chronic right- sided weakness, which is worse in his right leg, and this has not changed. Physical Exam Physical Exam: General Appearance: Awake, alert, oriented to basic situation. Mild confusion and day-to-day forgetfulness. Vital signs: Reviewed past 24h vital signs in EMR, unremarkable. HEENT: Within normal limits. Respiratory: Lungs clear to auscultation bilaterally, occasional loose cough. Cardiovascular: Heart rhythm regular, no murmurs, rubs, or gallops. Gastrointestinal: Abdomen soft, nontender, nondistended. Genitourinary: Male, Sanchez catheter present, draining yellow urine. Back, Musculoskeletal: Chronic right-sided weakness, worse in right leg, unchanged. Extremities: Lower extremities warm, well perfused, no edema. Skin: Skin warm, dry, no rashes. Neurological: Mild confusion and day-to-day forgetfulness. severe right lower extremity weakness, right upper extremity weakness left side is relatively strong. Spasticity of right lower extremity especially Psychiatric: Normal. Results & Data Results & Data Vital Signs (Past 12 Hours) Vital Signs Temp Pulse Resp BP Pulse Ox O2 Del Method O2 Flow Rate 04/11/25 10:05 92 Room Air 04/11/25 08:07 36.5 C 71 18 146/85 H 97 Room Air 04/11/25 06:59 78 18 92 Nasal Cannula 3 PG Care Time/CCT Total # of Minutes Spent Total Time Spent with Patient: Total time spent is greater than 50% in coordination of care (as documented) at patient's floor/unit and/or counseling patient: Coding Level of Care Code 78871 SUB INP/OBS CARE 3/50MIN Diagnoses Aspiration pneumonia J69.0 Multiple sclerosis G35.D Dysphagia R13.10 Esophageal thickening K22.89 Paraplegia, unspecified G82.20 Urinary retention R33.9
[2025-04-11] MEDS: OXYMETAZOLINE 0.05% 30 ML BTL SCH (17:28)
[2025-04-11 22:46] VITALS: RESP 18
[2025-04-12 07:19] VITALS: BP 142/71; PULSE 84; TEMP 97.7; O2SAT 91
--- NOTE | 2025-04-12 09:27 | Discharge Summary ---
Discharge Summary Date of Service April 12, 2025 Principal Dx & Hospital Course #1 = Principal Diagnosis (1) Aspiration pneumonia: (2) Multiple sclerosis: (3) Dysphagia: (4) Esophageal thickening: (5) Paraplegia, unspecified: (6) Urinary retention: Plan The patient is an 70 year-old man with multiple sclerosis resulting in functional paraplegia, severe dysphagia, aspiration pneumonia, pressure ulcers, and malnutrition admitted to the hospital for aspiration pneumonia. # Aspiration pneumonia Procalcitonin negative. CTA chest: Right lower lobe pneumonia, no PE. treated with IV ceftriaxone, Azithromycin. leukocytosis fever and hypoxia has resolved. last dose of antibiotics 04/11 # multiple sclerosis left greater than right weakness, quadriparesis, progressive neurological decline. Was diagnosed with MS in 2018. Also in the distant past he was thought to have a muscular dystrophy. has had essentially no physician follow- up since 2018 except for a single primary care visit in 2022. no further testing or treatment. Consulted neurology Dr. Prieto. MRI of brain and C-spine with white matter lesions consistent with demyelinating disease, thoracic and lumbar spinal cord unremarkable. he has some records with him from 2018 and he had a lumbar puncture CSF with 11 oligoclonal bands. This picture is consistent with multiple sclerosis - started treatment with Solu-Medrol 1 g IV daily x 3 days ( first dose 04/10) then Medrol Dosepak. last dose of Solu-Medrol was today I do not see any changes in his clinical status at this point. - multiple labs from neurology are pending. CK was mildly elevated which could be related to vitamin B deficiency. TSH was normal. Lyme screen negative. T. pallidum serology was negative. Pending tests/send outs include: aldolase, JULIO CESAR 12 panel, AV virus - will need outpatient follow-up with neurology for ongoing treatment # vitamin B12 deficiency - started treatment on 04/10 with 1000 mcg IM daily x 7 days followed by continued maintenance. we will order ongoing weekly B12 injections with home health. Will also treat empirically for B1 deficiency with thiamine 500 mg IV every 8 hours x 8 doses I do not see any early improvement with this vitamin D level was normal # Severe dysphagia Pureed diet and nectar thick. Discussed with [facility] Severe dysphagia resulting in aspiration pneumonia context of MS portends a poor prognosis, unless he can improve with treatment Can consider feeding tube but unlikely to meaningfully improve his prognosis. # Pressure ulcers present on admission Ongoing wound care. Evaluated by wound ostomy nurse. # Severe malnutrition consulted dietitian appetite stimulant start mirtazapine at HS Protein supplement Admission HPI Per Admitting Provider Mr. Holliday is a 70-year-old male who has an unspecified muscular dystrophy syndrome and does not follow with any long-term physician and is a member of the local [facility] community who presented to the [facility] on 04/05 due to progressive shortness of breath and productive cough over the past 48 hours. The patient endorses waking on 04/04 with a mildly productive cough without associated hemoptysis which progressed rapidly with increasing shortness of breath with activity as well as at rest, and increased volume and frequency of sputum production. They deny any fevers, chills, nausea, vomiting, pleuritic chest pain, palpitations, lower extremity edema. Due to the progression of their symptoms, he was brought to the emergency department for further evaluation. Discharge Exam General Appearance: Normal. Vital signs: Reviewed past 24h vital signs in EMR, unremarkable. HEENT: Within normal limits. Respiratory: Lungs clear bilaterally with low-pitched wheeze on the right and coarse breath sounds anteriorly. Respirations nonlabored. Cardiovascular: Heart regular, no murmurs, rubs, or gallops. Gastrointestinal: Abdomen soft, nontender, nondistended, normal bowel tones. Extremities: Sarcopenia of lower extremities Skin: Warm and dry, no rash. Neurological: right upper extremity weakness, severe right lower extremity weakness, bilateral lower extremity spasticity, especially on the right. Psychiatric: Normal. Other observations: Discharge Plan Discharge Items Patient Disposition: Home - Home Health Services Reason For Visit: CAP Discharge Diagnosis: Aspiration pneumonia, multiple sclerosis Condition on Discharge: Good Activity: Resume your previous activity Non-emergency contact: Primary Care Provider and Neurologist Call non-emergency contact if: you have any medication questions and your symptoms worsen Follow-up/Referrals: Kal Hatch MD [Physician] - (THE OFFICE WILL CALL YOU WITH A HOSPITAL FOLLOW UP VISIT) PCP,NO [Primary Care Provider] - ([facility] ) Diet: Other - See Diet Comment Diet Comment: Pureed food and mildly thickened liquids (nectar consistency) Addtl Attending Provider Instructions: Dear Mr Holliday, You were treated for aspiration pneumonia You completed a course of antibiotics while in the hospital You will probably have a cough for a few more weeks but it should gradually be getting better Swallowing coordination is poor because of muscle weakness, multiple sclerosis. Follow aspiration precautions: Mildly thickened liquids (nectar thick), pureed food Sit as upright as possible for meals and remain upright for an hour after eating Keep the head of the bed elevated thirty degrees or higher at all times [place] teeth with toothpaste at least twice a day - reduces bacteria in mouth, reduces chance of pneumonia MRI imaging confirmed changes consistent with MS in the brain and cervical spine, which explain the weakness The neurologist Dr. Prieto consulted. We treated you with three days of high dose steroids to see whether that would help any MS symptoms Follow the medrol steroid taper according to instructions until it runs out Follow up with Dr. Prieto in 2-3 weeks to discuss further treatment for MS. We sent other lab tests to evaluate for causes of weakness that will take 1-3 weeks to get results. You have B12 deficiency. I will ask if home health nurse can continue the B12 injections at home. Typically weekly for up to 8 weeks, then once a month Meanwhile take a B12 supplement - 1000 mcg every day. This is available over the counter There is thickening of your distal esophagus which was seen on chest CT. This could be esophagitis - inflammation from acid reflux, for example. Take omeprazole 40 mg daily. This is available over the counter. There is a possibility of something else going on - other types of esophagitis, ulcer, or tumor. Direct visualization with EGD is the best way to evaluate this - follow up with a field crop harvest worker. I started medicine called mirtazapine - this will promote increased appetite and better sleep Your pharmacy isn't open today, but its ok to pick the meds up tomorrow Home health RN, PT, OT, and speech therapy In order to have home health services, you'll need a primary care provider. We'll help set you up with the [facility] clinic closer to where you live. A primary care provider is a good idea for you to manage general health issues like the B12 deficiency, nutritional status, wound care, the swallowing and esophageal issues It was a pleasure taking care of you in the hospital, Karla Luna MD Pending Studies at Discharge: Yes Stand-Alone Forms: My [facility], Smoking Cessation Medications and DC Order Prescriptions: New mirtazapine 15 mg Tablet 15 mg PO HS Qty: 30 0RF methylprednisolone [Medrol (Slick)] 4 mg tablets,dose pack 4 mg PO DAILY Qty: 21 0RF Rx Instructions: take daily as per dosepack instructions mecobalamin (vitamin B12) [B12 Active] 1,000 mcg tablet,chewable 1,000 mcg PO DAILY Qty: 30 0RF Rx Instructions: buy over the counter. B12 1000 mcg daily. omeprazole 20 mg tablet,delayed release (DR/EC) 40 mg PO DAILY Qty: 60 0RF Rx Instructions: buy over the counter Continued Tylenol PM Extra Strength 500 mg PO DAILY PRN (Reason: Pain) Unkn 2 tab PO BID Patient Comments: Pt takes "calm pills" for stress, but doesn't know the name of medication per son. Discharge Orders: Discharge Order (Routine); Ordered 04/12/25 Ordered By: Karla Luna Admission Data Admit Date/Time: 04/06/25 08:39 Attending Provider: Karla Luna Admit Provider: Claudy Lucas Primary Care Provider: PCP,NO Other Providers: Claudy Lucas; Robert Prieto Other Interventions: Discharge Summary Assessment (RN) Last Done: 04/12/25 09:54 Hospital Stay Data Consultations 04/05/25 18:01 ED Decision to Admit Stat 04/09/25 08:40 Consult Neurology Routine Diagnostic Imagining Performed 04/05/25 13:03 CT for pulmonary embolism PE [CT angio chest PE protocol] Stat 04/06/25 17:37 CT head/brain wo con Routine 04/07/25 13:00 FL video swallow Routine 04/09/25 14:25 MR brain wo con Urgent MR cervical spine wo con Urgent MR lumbar spine wo con Urgent MR thoracic spine wo con Urgent Pending Results Patient Have Any Pending Studies at Discharge: Yes Discharge Instructions Given to Patient (Per Discharging Provider) Dear Mr Holliday, You were treated for aspiration pneumonia You completed a course of antibiotics while in the hospital You will probably have a cough for a few more weeks but it should gradually be getting better Swallowing coordination is poor because of muscle weakness, multiple sclerosis. Follow aspiration precautions: Mildly thickened liquids (nectar thick), pureed food Sit as upright as possible for meals and remain upright for an hour after eating Keep the head of the bed elevated thirty degrees or higher at all times [place] teeth with toothpaste at least twice a day - reduces bacteria in mouth, reduces chance of pneumonia MRI imaging confirmed changes consistent with MS in the brain and cervical spine, which explain the weakness The neurologist Dr. Prieto consulted. We treated you with three days of high dose steroids to see whether that would help any MS symptoms Follow the medrol steroid taper according to instructions until it runs out Follow up with Dr. Prieto in 2-3 weeks to discuss further treatment for MS. We sent other lab tests to evaluate for causes of weakness that will take 1-3 weeks to get results. You have B12 deficiency. I will ask if home health nurse can continue the B12 injections at home. Typically weekly for up to 8 weeks, then once a month Meanwhile take a B12 supplement - 1000 mcg every day. This is available over the counter There is thickening of your distal esophagus which was seen on chest CT. This could be esophagitis - inflammation from acid reflux, for example. Take omeprazole 40 mg daily. This is available over the counter. There is a possibility of something else going on - other types of esophagitis, ulcer, or tumor. Direct visualization with EGD is the best way to evaluate this - follow up with a field crop harvest worker. I started medicine called mirtazapine - this will promote increased appetite and better sleep Your pharmacy isn't open today, but its ok to pick the meds up tomorrow Home health RN, PT, OT, and speech therapy In order to have home health services, you'll need a primary care provider. We'll help set you up with the [facility] clinic closer to where you live. A primary care provider is a good idea for you to manage general health issues like the B12 deficiency, nutritional status, wound care, the swallowing and esophageal issues It was a pleasure taking care of you in the hospital, Karla Luna MD Total Time Total Time Spent Total Time Spent (In Minutes): I personally spent: 40 minutes today on clinical care activities including: reviewing chart notes and vital signs discussion with workforce investment act career manager examining and counseling the patient writing prescriptions, discharge instructions documentation Coding Level of Care Code 72673 INP/OBS DISCH >30 MIN Diagnoses Aspiration pneumonia J69.0 Multiple sclerosis G35.D Dysphagia R13.10 Esophageal thickening K22.89 Paraplegia, unspecified G82.20 Urinary retention R33.9
[2025-04-13] MEDS ORDERED: methylPREDNISolone 4 MG TAB PO SCH ×2 (07:00→13:00)
[2025-04-13] MEDS ORDERED: methylPREDNISolone 4 MG TAB, 6 DAY TAPER PO SCH (09:00)
--- NOTE | 2025-04-13 12:30 | Coding Query ---
CODING QUERY To promote full compliance with coding requirements relating to patient care, provider participation is requested in all cases of public area attendant uncertainty. Please assist us with the question(s) below: Coding Question(s): Documentation throughout patient chart lists Spastic Quadriparesis and Functional Paraplegia. Please clarify which is the true diagnosis for this patient. 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) Thank you Danika Yeh Principal Diagnosis: "that condition established after study, to be chiefly responsible for occasioning the admission of the patient to the hospital for care." Co-Existing Principal Diagnosis: "when two or more diagnoses equally meet the criteria for principal diagnosis as determined by the circumstances of admission, diagnostic work up, and/or therapy provided, and the Alphabetic Index, Tabular List, or another coding guideline does not provide sequencing direction, any one of the diagnoses may be sequenced first." "When the physician has documented what appears to be a current diagnosis in the body of the record, but has not included the diagnosis in the final diagnostic statement, the physician should be asked whether the diagnosis should be added." (Source Coding Clinic 2 QTR90. p3-4) LESLIE
[2025-04-14] MEDS ORDERED: methylPREDNISolone 4 MG TAB PO SCH ×2 (07:00→21:00)
[2025-04-15] MEDS ORDERED: methylPREDNISolone 4 MG TAB PO SCH (07:00)
[2025-04-15 07:07] LABS: Anti Nuclear Antibody Screen POSITIVE (NEGATIVE); Chromatin Antibody <1.0 NEG AI (<1.0 NEG); Sm Antibody <1.0 NEG AI (<1.0 NEG)
[2025-04-15 12:10] LABS: ANA Pattern Nuclear, Speckled; ANA Titer 1:40 titer
[2025-04-16] MEDS ORDERED: methylPREDNISolone 4 MG TAB PO SCH (07:00)
[2025-04-17] MEDS ORDERED: methylPREDNISolone 4 MG TAB PO SCH (07:00)
[2025-04-18] MEDS ORDERED: methylPREDNISolone 4 MG TAB PO SCH (07:00)
== END 2025-04-12 18:16 | disposition home health service (06) | DRG 177 ==
LOC: 3E 12:09 → ED 12:09 → 3E 19:54 → SUATTDRO 04-06 08:39